=== PATIENT | female | born 1940 | race American Indian/Alaskan Native ===

== ENCOUNTER 2018-06-18 09:08 | Emergency (ER) | payer MEDICARE ==
[2018-06-18 10:03] VITALS: RESP 18; TEMP 99.1; BMI 28.3
--- NOTE | 2018-06-18 10:19 | ED PDOC ---
Arrival/HPI - General Historian: Patient - History of Present Illness Time/Duration: Prior to Arrival <Kayode Lynch - Last Filed: 06/18/18 18:24> <Ishan Torrez DO - Last Filed: 06/18/18 18:45> - General Chief Complaint: High Blood Pressure Time Seen by Provider: 06/18/18 09:31 - History of Present Illness Narrative History of Present Illness (Text): 06/18/18 10:14 78 yo F with Past medical history of hypertension, breast cancer s/p R lumpectomy presenting to the Emergency department with palpitations and high BP. Per patient, she began experiencing palpitations last night which concerned her. She measured her blood pressure at home, SBP was running in the 150s, even after taking her spironolactone at home. She states her BP usually runs in the 130s. Patient denies any chest pain or palpitations currently. No sob, cough, headaches, dizziness, abdominal pain, nausea/vomiting/ diarrhea/constipation. No other acute complaints at this time. Past medical history: hypertension, breast cancer (in remission) PSHx: hysterectomy--heavy menses; R partial mastectomy (lumpectomy) Allergies: NKDA Home Medications: as per chart FHx: hypertension, diabetes, cancer Social: former smoker--quit 30 years ago; social drinker; denies illicit drug use PMD: Dr. Caceres (Kayode Lynch) Past Medical History - Provider Review Nursing Documentation Reviewed: Yes - Travel History Have you recently traveled outside [place] w/in the past 3 mons?: No - Cardiac Hx Cardiac Disorders: Yes Hx Hypertension: Yes - Pulmonary Hx Respiratory Disorders: No - Neurological Hx Paralysis: No - HEENT Hx Cataracts: Yes - Renal Hx Renal Disorder: No - Endocrine/Metabolic Hx Endocrine Disorders: No - Hematological/Oncological Hx Blood Transfusions: Yes (25 YRS AGO) Hx Blood Transfusion Reaction: No Other/Comment: Breast CA - Integumentary Hx Dermatological Disorder: No - Musculoskeletal/Rheumatological Hx Musculoskeletal Disorders: Yes (JOINT PAINS SOMETIMES) - Gastrointestinal Hx Gastrointestinal Disorders: No - Genitourinary/Gynecological Hx Reproductive Disorders: Yes (HAD HYSTERECTOMY HEAVY MENSES) - Psychiatric Hx Emotional Abuse: No Hx Physical Abuse: No Hx Substance Use: No - Surgical History Other/Comment: right breast lumpectomy - Anesthesia Hx Anesthesia Reactions: No Hx Malignant Hyperthermia: No - Suicidal Assessment Feels Threatened In Home Enviroment: No <CrisKayode - Last Filed: 06/18/18 18:24> Family/Social History - Physician Review Nursing Documentation Reviewed: Yes Family/Social History: Diabetes, Hypertension, Neoplasm/Cancer Smoking Status: Former Smoker Hx Alcohol Use: Yes Frequency of alcohol use: Socially Hx Substance Use: No Hx Substance Use Treatment: No <Kayode Lynch - Last Filed: 06/18/18 18:24> Allergies/Home Meds <Kayode Lynch - Last Filed: 06/18/18 18:24> <Ishan Torrez DO - Last Filed: 06/18/18 18:45> Allergies/Adverse Reactions: Allergies No Known Allergies Allergy (Verified 06/18/18 09:55) Home Medications: Home Meds Medication Instructions Recorded Confirmed Spironolactone 1 tab PO QAM 04/01/15 11/09/16 Anastrozole [Arimidex] 1 mg PO QAM 10/27/15 11/09/16 Aspirin [Aspirin EC] 81 mg PO DAILY 10/27/15 11/09/16 Atorvastatin [Lipitor] 20 mg PO QAM 10/27/15 11/09/16 Ezetimibe [Zetia] 10 mg PO 11/09/16 Review of Systems - Physician Review All systems were reviewed & negative as marked: Yes - Review of Systems Constitutional: Normal Eyes: Normal ENT: Normal Respiratory: Normal Cardiovascular: Normal. absent: Chest Pain, Palpitations, Edema, Calf Pain, Syncope Gastrointestinal: Normal. absent: Abdominal Pain, Diarrhea, Nausea, Vomiting Genitourinary Female: Normal Musculoskeletal: Normal Skin: Normal Neurological: Normal Endocrine: Normal <CrisKayode - Last Filed: 06/18/18 18:24> Physical Exam Vital Signs Reviewed: Yes Temperature: Afebrile Blood Pressure: Hypertensive Pulse: Regular Respiratory Rate: Normal Appearance: Positive for: Well-Appearing, Non-Toxic, Comfortable Pain Distress: None Mental Status: Positive for: Alert and Oriented X 3 - Systems Exam Head: Present: Atraumatic, Normocephalic Pupils: Present: PERRL Extroacular Muscles: Present: EOMI Conjunctiva: Present: Normal Mouth: Present: Moist Mucous Membranes Neck: Present: Normal Range of Motion Respiratory/Chest: Present: Clear to Auscultation, Good Air Exchange. No: Respiratory Distress, Wheezes, Rales, Rhonchi Cardiovascular: Present: Regular Rate and Rhythm, Normal S1, S2. No: Murmurs, Rub, Gallop Abdomen: Present: Normal Bowel Sounds. No: Tenderness, Distention, Rebound, Guarding, Mass/Organomegaly Breast/Axillary: No: Symmetrical (R lumpectomy) Back: Present: Normal Inspection Upper Extremity: Present: Normal Inspection, Normal ROM, NORMAL PULSES, Capillary Refill < 2s Lower Extremity: Present: Normal Inspection, NORMAL PULSES, Normal ROM, Capillary Refill < 2 s. No: CALF TENDERNESS Neurological: Present: CN II-XII Intact, Speech Normal, Motor Func Grossly Intact, Normal Sensory Function, Memory Normal Skin: Present: Warm, Dry, Normal Color Psychiatric: Present: Alert, Oriented x 3, Normal Insight, Normal Concentration , Normal Affect, Normal Mood <Kayode Lynch - Last Filed: 06/18/18 18:24> Vital Signs Temp Pulse Resp BP Pulse Ox 06/18/18 11:50 50 L 18 140/76 99 06/18/18 09:55 99.1 F 62 18 181/79 H 100 Medical Decision Making - EKG Interpretation Interpreted by ED Physician: Yes Type: 12 lead EKG <Kayode Lynch - Last Filed: 06/18/18 18:24> <Ishan Torrez DO - Last Filed: 06/18/18 18:45> ED Course and Treatment: 06/18/18 10:23 Impression: uncontrolled htn Plan: -- CBC, CMP -- EKG -- Reassess and disposition (Kayode Lynch) 06/18/18 10:25 Impression: 78 year old female presents to the Emergency department for palpitations and high BP. Patient Seen with Resident: In agreement with resident note which contains more details about the patient. Patient seen and evaluated with resident. Came up with plan and treatment together. Plan: -- EKG -- Labs -- Reassess and disposition Progress Notes: 06/18/18 11:35 On re-evaluation, patient is sitting with no acute distress. I have discussed the results and plan with the patient, who expresses understanding. Patient in agreement with plan to be discharged home. Patient is stable for discharge. Patient was instructed to follow up with physician or return if symptoms worsen or new concerning symptoms arise. (Ishan Torrez DO) - Lab Interpretations Lab Results: 06/18/18 10:40 06/18/18 10:40 Lab Results 06/18/18 10:40: Sodium 139, Potassium 5.1 H, Chloride 104, Carbon Dioxide 27, Anion Gap 13, BUN 20, Creatinine 1.1, Est GFR ( Amer) 58, Est GFR (Non- Af Amer) 48, Random Glucose 119 H, Calcium 10.4, Magnesium 2.3 H, Total Bilirubin 0.9, AST 24, ALT 22, Alkaline Phosphatase 89, Lactate Dehydrogenase 253 L, Total Creatine Kinase 95, Troponin I < 0.01, Total Protein 7.9, Albumin 4.4, Globulin 3.5, Albumin/Globulin Ratio 1.2 06/18/18 10:40: WBC 6.8, RBC 4.71, Hgb 15.7, Hct 47.9, MCV 101.7, MCH 33.3, MCHC 32.8, RDW 13.8, Plt Count 213, MPV 10.5, Gran % 73.0 H, Lymph % (Auto) 21.4 L, [place] % (Auto) 5.3, Eos % (Auto) 0.0 L, Baso % (Auto) 0.3, Gran # 4.97, Lymph # (Auto) 1.5, [place] # (Auto) 0.4, Eos # (Auto) 0.0, Baso # (Auto) 0.02 - EKG Interpretation EKG Interpretation (Text): 06/18/18 10:36 Sinus steve 56 bpm DE 158 T wave abnormality, consider lateral ischemia (Kayode Lynch) <Kayode Lynch - Last Filed: 06/18/18 18:24> - PA / PROOF PLATE MAKER / Resident Statement CARLTON has reviewed & agrees with the documentation as recorded. CARLTON has examined the patient and agrees with the treatment plan. - Scribe Statement The provider has reviewed the documentation as recorded by the Scribe <Ishan Torrez DO - Last Filed: 06/18/18 18:45> - Scribe Statement Ailyn Prince All medical record entries made by the Scribe were at my direction and personally dictated by me. I have reviewed the chart and agree that the record accurately reflects my personal performance of the history, physical exam, medical decision making, and the department course for this patient. I have also personally directed, reviewed, and agree with the discharge instructions and disposition. (Ishan Torrez DO) Disposition/Present on Arrival - Present on Arrival Any Indicators Present on Arrival: No History of DVT/PE: No History of Uncontrolled Diabetes: No Urinary Catheter: No History of Decub. Ulcer: No History Surgical Site Infection Following: None - Disposition Have Diagnosis and Disposition been Completed?: Yes Disposition Time: 11:50 <Kayode Lynch - Last Filed: 06/18/18 18:24> <Ishan Torrez DO - Last Filed: 06/18/18 18:45> - Disposition Diagnosis: Hypertension Disposition: HOME/ ROUTINE Condition: GOOD Discharge Instructions (ExitCare): High Blood Pressure (DC) Additional Instructions: ANA CRESPO, thank you for letting us take care of you today. Your provider was Ishan Torrez DO and you were treated for HIGH BLOOD PRESSURE. The emergency medical care you received today was directed at your acute symptoms. If you were prescribed any medication, please fill it and take as directed. It may take several days for your symptoms to resolve. Return to the Emergency Department if your symptoms worsen, do not improve, or if you have any other problems. Please contact your doctor or call one of the physicians/clinics you have been referred to that are listed on the Patient Visit Information form that is included in your discharge packet. Bring any paperwork you were given at discharge with you along with any medications you are taking to your follow up visit. Our treatment cannot replace ongoing medical care by a primary care provider outside of the emergency department. Thank you for allowing the [facility] team to be part of your care today. Follow up with your primary care doctor this week for re-evaluation and further management. Referrals: Oleg Caceres MD [Family Provider] - Follow up with primary Forms: [employer] (Danish)
[2018-06-18 11:12] LABS: BASO # 0.02 K/mm3 (0.0-2.0); BASO % 0.3 % (0.0-3.0); GRAN # 4.97 (1.4-6.5); HEMOGLOBIN 15.7 g/dL (12.0-16.0); LYMPH # 1.5 (1.2-3.4); LYMPH % 21.4 % (22.0-35.0); MEAN CELL VOLUME 101.7 fl (80.0-105.0); MEAN CORPUSCULAR HEMOGLOBIN 33.3 pg (25.0-35.0); MEAN CORPUSCULAR HGB CONC 32.8 g/dl (31.0-37.0); MEAN PLATELET VOLUME 10.5 fl (7.0-11.0); MONO # 0.4 (0.1-0.6); MONO % 5.3 % (1.0-6.0); RBC 4.71 10^6/uL (3.5-6.1); RED CELL DISTRIBUTION WIDTH 13.8 % (11.5-14.5); WHITE BLOOD COUNT 6.8 10^3/ul (4.5-11.0)
[2018-06-18 11:20] LABS: ALB/GLOB RATIO 1.2 (1.1-1.8); ALBUMIN 4.4 g/dL (3.0-4.8); ALT/SGPT 22 U/L (7-56); AST/SGOT 24 U/L (14-36); BLOOD UREA NITROGEN 20 mg/dL (7-21); CALCIUM 10.4 mg/dL (8.4-10.5); GFR NON-AFRICAN AMERICAN 48
[2018-06-18 11:32] LABS: TROPONIN I < 0.01 ng/mL
[2018-06-18 11:51] VITALS: BP 140/76; PULSE 50; O2SAT 99
--- NOTE | 2018-06-18 13:00 | CARD ---
APPROVED REPORT Date of service: 06/18/2018 EKG Measurement Heart [id number] <Conclusion> Sinus bradycardia RVCD T wave abnormality, consider lateral ischemia
== END 2018-06-18 12:07 | disposition home or self-care (01) ==
LOC: ED 09:08
DX: I10 Essential (primary) hypertension (principal); Z87.891 Personal history of nicotine dependence; Z83.3 Family history of diabetes mellitus; Z82.49 Family history of ischemic heart disease and other diseases of the circulatory system; Z85.3 Personal history of malignant neoplasm of breast

== ENCOUNTER 2018-12-15 20:09 | Inpatient (IN) | payer MEDICARE ==
[2018-12-15 20:15] VITALS: BMI 28.8
[2018-12-15] MEDS ORDERED: Insulin Regular 1 UNITS/0.01 ML ML IVP STA (21:00)
[2018-12-15] MEDS ORDERED: Sodium Chloride 0.9% 1,000 ML IV STA ×3 (21:00→23:09)
[2018-12-15 21:18] LABS: VENOUS BLOOD GAS BASE EXCESS -1.3 mmol/L (0.0-2.0); VENOUS BLOOD GAS PO2 27 mm/Hg (30-55); VENOUS BLOOD PH 7.34 (7.32-7.43)
[2018-12-15 21:24] LABS: HEMOGLOBIN 14.1 g/dL (12.0-16.0); MEAN CELL VOLUME 108.9 fl (80.0-105.0); MEAN CORPUSCULAR HEMOGLOBIN 32.9 pg (25.0-35.0); MEAN CORPUSCULAR HGB CONC 30.2 g/dl (31.0-37.0); MEAN PLATELET VOLUME 11.5 fl (7.0-11.0); RBC 4.29 10^6/uL (3.5-6.1); RED CELL DISTRIBUTION WIDTH 13.7 % (11.5-14.5); WHITE BLOOD COUNT 7.2 10^3/uL (4.5-11.0)
[2018-12-15] MEDS ORDERED: Potassium Chloride 20 mEq 100 ML IV ONE (21:32)
[2018-12-15 21:41] LABS: TROPONIN I 0.01 ng/mL
[2018-12-15 22:18] LABS: ALB/GLOB RATIO 1.3 (1.1-1.8); ALBUMIN 4.2 g/dL (3.0-4.8); CALCIUM 10.7 mg/dL (8.4-10.5)
[2018-12-15] MEDS ORDERED: Insulin Regular 1 UNITS/0.01 ML ML SC STA (22:25)
--- NOTE | 2018-12-15 22:26 | ED PDOC ---
Arrival/HPI - General Chief Complaint: High Blood Sugar Time Seen by Provider: 12/15/18 20:29 Historian: Patient - History of Present Illness Narrative History of Present Illness (Text): 12/15/18 20:50 78 year old female whose past medical history includes breast cancer, Hypertension, new onset of diabetes, presents to the emergency department for evaluation of persistent elevation of her blood sugar, dizziness, and excessive thirst. Patient states she was diagnosis yesterday by her doctor who placed her on metformin. Patient states she does not feel any better. Patient denies any fevers, chills, shortness of breath, chest pain, abdominal pain, urinary symptoms, back pain, neck pain, headache, or any other complaints PMD: Dr. Caceres Symptom Onset: Gradual Symptom Course: Unchanged Activities at Onset: Light Context: Home Past Medical History - Provider Review Nursing Documentation Reviewed: Yes - Infectious Disease Hx of Infectious Diseases: None - Cardiac Hx Cardiac Disorders: Yes Hx Hypertension: Yes - Pulmonary Hx Respiratory Disorders: No - Neurological Hx Paralysis: No - HEENT Hx Cataracts: Yes - Renal Hx Renal Disorder: No - Endocrine/Metabolic Hx Endocrine Disorders: No - Hematological/Oncological Hx Blood Transfusions: Yes (25 YRS AGO) Hx Blood Transfusion Reaction: No Hx Cancer: Yes (breast) Other/Comment: Breast CA - Integumentary Hx Dermatological Disorder: No - Musculoskeletal/Rheumatological Hx Musculoskeletal Disorders: Yes (JOINT PAINS SOMETIMES) - Gastrointestinal Hx Gastrointestinal Disorders: No - Genitourinary/Gynecological Hx Reproductive Disorders: Yes (HAD HYSTERECTOMY HEAVY MENSES) - Psychiatric Hx Emotional Abuse: No Hx Physical Abuse: No Hx Substance Use: No - Surgical History Hx Hysterectomy: Yes Other/Comment: RIGHT BREAST MASTECTOMY/PARTIAL WITH SENTINEL NODE - Anesthesia Hx Anesthesia Reactions: No Hx Malignant Hyperthermia: No - Suicidal Assessment Feels Threatened In Home Enviroment: No Family/Social History - Physician Review Nursing Documentation Reviewed: Yes Family/Social History: No Known Family HX Smoking Status: Former Smoker Hx Alcohol Use: No Hx Substance Use: No Hx Substance Use Treatment: No Allergies/Home Meds Allergies/Adverse Reactions: Allergies No Known Allergies Allergy (Verified 12/15/18 20:15) Home Medications: Home Meds Medication Instructions Recorded Confirmed Spironolactone 1 tab PO QAM 04/01/15 11/09/16 Anastrozole [Arimidex] 1 mg PO QAM 10/27/15 11/09/16 Aspirin [Aspirin EC] 81 mg PO DAILY 10/27/15 11/09/16 Atorvastatin [Lipitor] 20 mg PO QAM 10/27/15 11/09/16 Ezetimibe [Zetia] 10 mg PO 11/09/16 Review of Systems - Physician Review All systems were reviewed & negative as marked: Yes - Review of Systems Constitutional: absent: Fevers, Other (chills) Respiratory: absent: SOB Cardiovascular: absent: Chest Pain Gastrointestinal: absent: Abdominal Pain, Diarrhea, Nausea, Vomiting Genitourinary Female: absent: Dysuria, Frequency, Hematuria Musculoskeletal: absent: Back Pain, Neck Pain Neurological: Dizziness. absent: Headache Endocrine: Polydipsia Physical Exam Vital Signs Reviewed: Yes Vital Signs Temp Pulse Resp BP Pulse Ox 12/15/18 22:10 72 16 130/74 95 12/15/18 20:23 98.0 F 74 20 155/83 H 95 Temperature: Afebrile Blood Pressure: Hypertensive Pulse: Regular Respiratory Rate: Normal Appearance: Positive for: Well-Appearing, Non-Toxic, Comfortable Pain Distress: None Mental Status: Positive for: Alert and Oriented X 3 Finger Stick Blood Glucose: 500 - Systems Exam Head: Present: Atraumatic, Normocephalic Pupils: Present: PERRL Extroacular Muscles: Present: EOMI Conjunctiva: Present: Normal Mouth: Present: Dry Neck: Present: Normal Range of Motion Respiratory/Chest: Present: Clear to Auscultation, Good Air Exchange. No: Respiratory Distress, Accessory Muscle Use Cardiovascular: Present: Regular Rate and Rhythm, Normal S1, S2. No: Murmurs Abdomen: No: Tenderness, Distention, Peritoneal Signs Back: Present: Normal Inspection Upper Extremity: Present: Normal Inspection. No: Cyanosis, Edema Lower Extremity: Present: Normal Inspection. No: Edema Neurological: Present: GCS=15, CN II-XII Intact, Speech Normal Skin: Present: Warm, Dry, Normal Color. No: Rashes Psychiatric: Present: Alert, Oriented x 3, Normal Insight, Normal Concentration Medical Decision Making ED Course and Treatment: 12/15/18 20:50 Impression: 78 year old female presents complaining of persistent elevation of her blood sugar, dizziness, and excessive thirst. Patient recently diagnosed with diabetes yesterday. Plan: -- EKG -- Labs -- CXR -- HumuLin R, IV FLuids -- UA -- Reassess and disposition Prior Visits: Notes and results from previous visits were reviewed. Progress Notes: EKG shows NSR at 63 BPM with nonspecific t-wave changes. Interpreted by me 12/15/18 22:46 Case discussed with medical radiation tech and Dr. So who is aware and agrees with the plan. Accepts patient into hospitalist service. - Lab Interpretations Lab Results: pO2 27 mm/Hg (30-55) L 12/15/18 21:08 VBG pH 7.34 (7.32-7.43) 12/15/18 21:08 VBG pCO2 46.0 (40-60) 12/15/18 21:08 VBG HCO3 24.8 mmol/l (21-28) 12/15/18 21:08 VBG O2 Sat (Calc) 48.9 % (40-65) 12/15/18 21:08 VBG Base Excess -1.3 mmol/L (0.0-2.0) L 12/15/18 21:08 Troponin I 0.01 ng/mL 12/15/18 20:55 Total Bilirubin 0.6 mg/dL (0.2-1.3) 12/15/18 20:55 AST 28 U/L (14-36) 12/15/18 20:55 ALT 37 U/L (7-56) 12/15/18 20:55 Alkaline Phosphatase 103 U/L (38-126) 12/15/18 20:55 Total Protein 7.3 g/dL (5.8-8.3) 12/15/18 20:55 Albumin 4.2 g/dL (3.0-4.8) 12/15/18 20:55 Globulin 3.1 gm/dL 12/15/18 20:55 Albumin/Globulin Ratio 1.3 (1.1-1.8) 12/15/18 20:55 I have reviewed the lab results: Yes - RAD Interpretation Radiology Orders: 12/15/18 20:59 CHEST PORTABLE [RAD] Stat Coagulating Bath Operator: ED Physician - EKG Interpretation Interpreted by ED Physician: Yes Type: 12 lead EKG - Medication Orders Current Medication Orders: Sodium Chloride (Sodium Chloride 0.9%) 1,000 mls @ 200 mls/hr IV .Q5H CLYDE Sodium Chloride (Sodium Chloride 0.9%) 1,000 mls @ 999 mls/hr IV .Q1H1M STA Stop: 12/15/18 23:19 Discontinued Medications Sodium Chloride (Sodium Chloride 0.9%) 1,000 mls @ 999 mls/hr IV .Q1H1M STA Stop: 12/15/18 22:00 Last Admin: 12/15/18 20:55 Dose: 999 mls/hr eMAR Start Stop Document 12/15/18 20:55 KV (Rec: 12/15/18 21:11 KV [id number]) Intravenous Solution Start Date 12/15/18 Start Time 20:55 Insulin Human Regular (Humulin R) 10 units IVP STAT STA Stop: 12/15/18 21:01 Last Admin: 12/15/18 21:13 Dose: 10 unit MAR Blood Glucose Document 12/15/18 21:13 KV (Rec: 12/15/18 21:13 KV [id number]) Blood Glucose Finger Stick Blood Glucose (70-120) 500 IVP Administration Document 12/15/18 21:13 KV (Rec: 12/15/18 21:13 KV [id number]) Charges for Administration # of IVP Administrations 1 - Scribe Statement The provider has reviewed the documentation as recorded by the Scribe Jovan Jay All medical record entries made by the Scribe were at my direction and personally dictated by me. I have reviewed the chart and agree that the record accurately reflects my personal performance of the history, physical exam, medical decision making, and the department course for this patient. I have also personally directed, reviewed, and agree with the discharge instructions and disposition. Disposition/Present on Arrival - Present on Arrival Any Indicators Present on Arrival: No History of DVT/PE: No History of Uncontrolled Diabetes: No Urinary Catheter: No History of Decub. Ulcer: No History Surgical Site Infection Following: None - Disposition Have Diagnosis and Disposition been Completed?: Yes Diagnosis: Uncontrolled diabetes mellitus Disposition: HOSPITALIZED Disposition Time: 22:45 Patient Plan: Admission Condition: STABLE
[2018-12-15 22:46] LABS: URINE BILIRUBIN NEGATIVE (NEGATIVE); URINE BLOOD TRACE-LYSED (NEGATIVE); URINE GLUCOSE (UA) >=1000 mg/dL (NEGATIVE); URINE LEUKOCYTE ESTERASE NEGATIVE Leu/uL (NEGATIVE); URINE PROTEIN NEGATIVE mg/dL (<30 mg/dL); URINE UROBILINOGEN 0.2 E.U./dL (<1 E.U./dL)
[2018-12-15] MEDS ORDERED: Dextrose 50% SYRINGE Inj (50 ml) IV PRN (22:53)
[2018-12-15 22:54] LABS: URINE APPEARANCE CLEAR (CLEAR); URINE COLOR STRAW (YELLOW)
[2018-12-15 23:04] LABS: CK-MB 3.1 ng/mL (0.0-3.6)
[2018-12-15 23:05] LABS: URINE WBC 0 - 2 /hpf (0-6)
--- NOTE | 2018-12-16 00:05 | CP.PCM.HP ---
<Fernando Ballard - Last Filed: 12/16/18 00:05> History of Present Illness - History of Present Illness History of Present Illness: Fernando Ballard DO, PGY-1 Hospitalist Admission History and Physical for Dr. So CC: hyperglycemia, polyuria, polydypsia HPI: Capri is a pleasant 78 year old female with PMH of newly diagnosed DM2, HTN, breast CA (s/p R partial mastectomy, on arimidex), and HLD who presents to ED with her family for concerns of an elevated blood sugar reading. She states that she took her blood sugar this evening and it was in the 500s, prompting her to present to ED. She states she saw her PMD yesterday who diagnosed her with DM2 and placed her on metformin. She states that since yesterday, she has also noticed increasing polyuria, polydypsia, and dizziness. In ED, her blood sugar was found to be > 1000. She otherwise offers no additional complaints and denies fever/chills, recent sick contacts, CP, SOB, abd pain/nausea/vomiting, peripheral numbness/tingling, or dysuria. 12-point ROS was otherwise negative except as specified above. PMD: [place] Past Medical History: newly diagnosed DM2, HTN, breast CA (s/p R partial mastectomy, on arimidex), and HLD Past Surgical History: R partial mastectomy, hysterectomy Allergies: NKA Home medications: Aldactone 50 mg daily, Zetia 10 mg daily, Lipitor 20 mg daily, ASA 81 mg daily, Arimidex 1 mg daily Family History: mother and father both had HTN, DM2 Social History: admits to prior smoking but quit 30 years ago, reports social EtOH use, denies illicit drug use Present on Admission - Present on Admission Any Indicators Present on Admission: Yes History of DVT/PE: No History of Uncontrolled Diabetes: Yes Urinary Catheter: No Decubitus Ulcer Present: No Past Patient History - Infectious Disease Hx of Infectious Diseases: None - Past Medical History & Family History Past Medical History?: Yes - Past Social History Smoking Status: Former Smoker - CARDIAC Hx Cardiac Disorders: Yes Hx Hypercholesterolemia: Yes Hx Hypertension: Yes Other/Comment: [place] 2000 - PULMONARY Hx Respiratory Disorders: No - NEUROLOGICAL Hx Neurological Disorder: No - HEENT Hx Cataracts: Yes - RENAL Hx Chronic Kidney Disease: No - ENDOCRINE/METABOLIC Hx Endocrine Disorders: No Hx Diabetes Mellitus Type 2: Yes - HEMATOLOGICAL/ONCOLOGICAL Hx Anemia: Yes Hx Cancer: Yes (rt breast) Other/Comment: Breast CA radiation on chemo pills - INTEGUMENTARY Hx Dermatological Problems: No - MUSCULOSKELETAL/RHEUMATOLOGICAL Hx Musculoskeletal Disorders: Yes (JOINT PAINS SOMETIMES) Hx Falls: No - GASTROINTESTINAL Hx Gastrointestinal Disorders: No - GENITOURINARY/GYNECOLOGICAL Hx Reproductive Disorders: Yes (HAD HYSTERECTOMY HEAVY MENSES) - PSYCHIATRIC Hx Emotional Abuse: No Hx Physical Abuse: No Hx Substance Use: No - SURGICAL HISTORY Hx Coronary Stent: Yes Hx Hysterectomy: Yes Other/Comment: RIGHT BREAST LUMPECTOMY/PARTIAL WITH SENTINEL NODE - ANESTHESIA Hx Anesthesia Reactions: No Hx Malignant Hyperthermia: No Meds Allergies/Adverse Reactions: Allergies Allergy/AdvReac Type Severity Reaction Status Date / Time No Known Allergies Allergy Verified 12/15/18 20:15 Physical Exam - Constitutional Appears: Non-toxic, No Acute Distress - Head Exam Head Exam: ATRAUMATIC, NORMOCEPHALIC - Eye Exam Eye Exam: EOMI, PERRL - ENT Exam ENT Exam: Mucous Membranes Dry - Neck Exam Neck exam: Positive for: Full Rom, Normal Inspection - Respiratory Exam Respiratory Exam: Clear to Auscultation Bilateral, NORMAL BREATHING PATTERN. absent: Accessory Muscle Use, Rales, Rhonchi, Wheezes, Respiratory Distress - Cardiovascular Exam Cardiovascular Exam: REGULAR RHYTHM, RRR, +S1, +S2. absent: Diastolic murmur, Gallop, Rubs, Systolic Murmur - GI/Abdominal Exam GI & Abdominal Exam: Normal Bowel Sounds, Soft. absent: Guarding, Rebound, Tenderness - Extremities Exam Extremities exam: Positive for: full ROM, pedal pulses present. Negative for: pedal edema - Back Exam Back exam: NORMAL INSPECTION - Neurological Exam Neurological exam: Alert, Oriented x3 - Psychiatric Exam Psychiatric exam: Normal Affect, Normal Mood - Skin Skin Exam: Dry, Intact, Warm Results - Vital Signs Recent Vital Signs: Last Vital Signs Temp 98.0 F 12/15/18 20:23 Pulse 72 12/15/18 22:10 Resp 18 12/15/18 23:38 BP 130/74 12/15/18 22:10 Pulse Ox 95 12/15/18 22:10 - Labs Result Diagrams: 12/15/18 20:55 12/15/18 20:55 Labs: Laboratory Results - last 24 hr 12/15/18 12/15/18 12/15/18 20:21 20:55 20:55 WBC 7.2 RBC 4.29 Hgb 14.1 Hct 46.7 MCV 108.9 H D MCH 32.9 MCHC 30.2 L RDW 13.7 Plt Count 189 MPV 11.5 H pO2 VBG pH VBG pCO2 VBG HCO3 VBG O2 Sat (Calc) VBG Base Excess Sodium 130 L Potassium 5.1 H Chloride 95 L Carbon Dioxide 21 Anion Gap 19 BUN 49 H Creatinine 1.5 H Est GFR ( Amer) 41 Est GFR (Non-Af Amer) 33 POC Glucose (mg/dL) > 500 H* Random Glucose 1057 H* D Calcium 10.7 H Phosphorus Magnesium Total Bilirubin 0.6 AST 28 ALT 37 Alkaline Phosphatase 103 Lactate Dehydrogenase 267 L Total Creatine Kinase 462 H CK-MB (CK-2) 3.1 CK-MB (CK-2) % Cancelled Troponin I 0.01 Total Protein 7.3 Albumin 4.2 Globulin 3.1 Albumin/Globulin Ratio 1.3 Urine Color Urine Appearance Urine pH Ur Specific Casco Urine Protein Urine Glucose (UA) Urine Ketones Urine Blood Urine Nitrate Urine Bilirubin Urine Urobilinogen Ur Leukocyte Esterase Urine RBC Urine WBC Ur Epithelial Cells 12/15/18 12/15/18 12/15/18 21:08 22:40 22:55 WBC RBC Hgb Hct MCV MCH MCHC RDW Plt Count MPV pO2 27 L VBG pH 7.34 VBG pCO2 46.0 VBG HCO3 24.8 VBG O2 Sat (Calc) 48.9 VBG Base Excess -1.3 L Sodium Potassium Chloride Carbon Dioxide Anion Gap BUN Creatinine Est GFR ( Amer) Est GFR (Non-Af Amer) POC Glucose (mg/dL) Random Glucose Calcium Phosphorus 3.7 Magnesium 2.4 H Total Bilirubin AST ALT Alkaline Phosphatase Lactate Dehydrogenase Total Creatine Kinase CK-MB (CK-2) CK-MB (CK-2) % Troponin I Total Protein Albumin Globulin Albumin/Globulin Ratio Urine Color Straw Urine Appearance Clear Urine pH 6.0 Ur Specific [place] 1.010 Urine Protein Negative Urine Glucose (UA) >=1000 Urine Ketones Trace H Urine Blood Trace-lysed H Urine Nitrate Negative Urine Bilirubin Negative Urine Urobilinogen 0.2 Ur Leukocyte Esterase Negative Urine RBC 1 - 3 H Urine WBC 0 - 2 Ur Epithelial Cells 1 - 3 Assessment & Plan - Assessment and Plan (Free Text) Assessment: 78 yo F with PMH of newly diagnosed DM2, HTN, breast CA (s/p R partial mastectomy, on arimidex), and HLD admitted for management of symptomatic hyperglycemic, hyperosmolar syndrome. Plan: HHS 2/2 uncontrolled, newly diagnosed DM2 2 L NS boluses received in ED, will give additional 1 L bolus Continue IVF resuscitation at 200 cc/hr after 3rd bolus 15 u regular insulin SC and 10 u IVP given in ED Continue with ISS - high coverage Fingerstick glucose q4h tonight, likely switch to ACHS tomorrow after stabilization of blood sugar F/u A1c, lipid panel, TSH, electrolytes, folate, B12 in AM Endocrinology consult placed, all recs appreciated CYNDI Most likely 2/2 pre-renal azotemia from dehydration/hyperglycemia Continue IVF resuscitation Continue to monitor renal function parameters If not improving with IVF, may be CYNDI on CKD and may need nephrology consult Hyperkalemia Most likely 2/2 acute renal dysfunction from CYNDI Continue to monitor with insulin therapy Elevated CPK May be concerning for early onset rhabdo given patient reports muscle cramps Already treating with IVF resuscitation Continue to monitor, may need dialysis/nephro consult if renal function continues to worsen HTN Was seen in ED for uncontrolled HTN in 05/2018 Prior records indicate no BP meds, but need to call pharmacy in AM to confirm Has been normotensive since admission Continue to monitor, restart prior meds as needed HLD Continue home lipitor, zetia Had normal stress test in 10/2016 F/u lipid panel results DVT/GI PPX: SCD/GI ppx not indicated Full Code Diabetic diet Monitor on med/surg Patient seen, examined with, and plan discussed with my attending Dr. Judah Ballard, D.O. IM Resident PGY-1 <Darlene So - Last Filed: 12/16/18 19:51> Results - Vital Signs Recent Vital Signs: Last Vital Signs Temp 98.3 F 12/16/18 17:15 Pulse 62 12/16/18 17:15 Resp 18 12/16/18 17:15 BP 166/84 H 12/16/18 17:15 Pulse Ox 98 12/16/18 17:15 - Labs Result Diagrams: 12/16/18 05:00 12/16/18 05:00 Labs: Laboratory Results - last 24 hr 12/15/18 12/15/18 12/15/18 20:21 20:55 20:55 WBC 7.2 RBC 4.29 Hgb 14.1 Hct 46.7 MCV 108.9 H D MCH 32.9 MCHC 30.2 L RDW 13.7 Plt Count 189 MPV 11.5 H Neut % (Auto) Lymph % (Auto) Murray % (Auto) Eos % (Auto) Baso % (Auto) Lymph # (Auto) Murray # (Auto) Eos # (Auto) Baso # (Auto) Absolute Neuts (auto) pO2 VBG pH VBG pCO2 VBG HCO3 VBG O2 Sat (Calc) VBG Base Excess Sodium 130 L Potassium 5.1 H Chloride 95 L Carbon Dioxide 21 Anion Gap 19 BUN 49 H Creatinine 1.5 H Est GFR ( Amer) 41 Est GFR (Non-Af Amer) 33 POC Glucose (mg/dL) > 500 H* Random Glucose 1057 H* D Calcium 10.7 H Phosphorus Magnesium Total Bilirubin 0.6 AST 28 ALT 37 Alkaline Phosphatase 103 Lactate Dehydrogenase 267 L Total Creatine Kinase 462 H CK-MB (CK-2) 3.1 CK-MB (CK-2) % Cancelled Troponin I 0.01 Total Protein 7.3 Albumin 4.2 Globulin 3.1 Albumin/Globulin Ratio 1.3 Triglycerides Cholesterol LDL Cholesterol Direct HDL Cholesterol Vitamin B12 Folate TSH 3rd Generation Urine Color Urine Appearance Urine pH Ur Specific [place] Urine Protein Urine Glucose (UA) Urine Ketones Urine Blood Urine Nitrate Urine Bilirubin Urine Urobilinogen Ur Leukocyte Esterase Urine RBC Urine WBC Ur Epithelial Cells 12/15/18 12/15/18 12/15/18 21:08 22:25 22:40 WBC RBC Hgb Hct MCV MCH MCHC RDW Plt Count MPV Neut % (Auto) Lymph % (Auto) Murray % (Auto) Eos % (Auto) Baso % (Auto) Lymph # (Auto) Murray # (Auto) Eos # (Auto) Baso # (Auto) Absolute Neuts (auto) pO2 27 L VBG pH 7.34 VBG pCO2 46.0 VBG HCO3 24.8 VBG O2 Sat (Calc) 48.9 VBG Base Excess -1.3 L Sodium Potassium Chloride Carbon Dioxide Anion Gap BUN Creatinine Est GFR ( Amer) Est GFR (Non-Af Amer) POC Glucose (mg/dL) > 500 H* Random Glucose Calcium Phosphorus Magnesium Total Bilirubin AST ALT Alkaline Phosphatase Lactate Dehydrogenase Total Creatine Kinase CK-MB (CK-2) CK-MB (CK-2) % Troponin I Total Protein Albumin Globulin Albumin/Globulin Ratio Triglycerides Cholesterol LDL Cholesterol Direct HDL Cholesterol Vitamin B12 Folate TSH 3rd Generation Urine Color Straw Urine Appearance Clear Urine pH 6.0 Ur Specific [place] 1.010 Urine Protein Negative Urine Glucose (UA) >=1000 Urine Ketones Trace H Urine Blood Trace-lysed H Urine Nitrate Negative Urine Bilirubin Negative Urine Urobilinogen 0.2 Ur Leukocyte Esterase Negative Urine RBC 1 - 3 H Urine WBC 0 - 2 Ur Epithelial Cells 1 - 3 12/15/18 12/15/18 12/16/18 22:55 22:55 00:06 WBC RBC Hgb Hct MCV MCH MCHC RDW Plt Count MPV Neut % (Auto) Lymph % (Auto) Murray % (Auto) Eos % (Auto) Baso % (Auto) Lymph # (Auto) Murray # (Auto) Eos # (Auto) Baso # (Auto) Absolute Neuts (auto) pO2 VBG pH VBG pCO2 VBG HCO3 VBG O2 Sat (Calc) VBG Base Excess Sodium Potassium Chloride Carbon Dioxide Anion Gap BUN Creatinine Est GFR ( Amer) Est GFR (Non-Af Amer) POC Glucose (mg/dL) > 500 H* Random Glucose Calcium Phosphorus 3.7 Magnesium 2.4 H Total Bilirubin AST ALT Alkaline Phosphatase Lactate Dehydrogenase Total Creatine Kinase CK-MB (CK-2) CK-MB (CK-2) % Troponin I Total Protein Albumin Globulin Albumin/Globulin Ratio Triglycerides Cholesterol LDL Cholesterol Direct HDL Cholesterol Vitamin B12 709 Folate 10.8 TSH 3rd Generation Urine Color Urine Appearance Urine pH Ur Specific [place] Urine Protein Urine Glucose (UA) Urine Ketones Urine Blood Urine Nitrate Urine Bilirubin Urine Urobilinogen Ur Leukocyte Esterase Urine RBC Urine WBC Ur Epithelial Cells 12/16/18 12/16/18 12/16/18 05:00 05:00 05:00 WBC 8.6 RBC 4.18 Hgb 13.7 Hct 41.9 MCV 100.2 D MCH 32.8 MCHC 32.7 RDW 12.8 Plt Count 171 MPV 11.0 Neut % (Auto) 74.1 H Lymph % (Auto) 18.3 L Murray % (Auto) 6.7 H Eos % (Auto) 0.7 L Baso % (Auto) 0.2 Lymph # (Auto) 1.6 Murray # (Auto) 0.6 Eos # (Auto) 0.1 Baso # (Auto) 0.02 Absolute Neuts (auto) 6.40 pO2 VBG pH VBG pCO2 VBG HCO3 VBG O2 Sat (Calc) VBG Base Excess Sodium 143 Potassium 4.3 Chloride 112 H Carbon Dioxide 26 Anion Gap 10 BUN 30 H Creatinine 1.0 Est GFR ( Amer) > 60 Est GFR (Non-Af Amer) 53 POC Glucose (mg/dL) Random Glucose 265 H Calcium 9.8 Phosphorus 1.8 L Magnesium 2.1 Total Bilirubin 0.4 AST 32 ALT 27 Alkaline Phosphatase 78 Lactate Dehydrogenase Total Creatine Kinase CK-MB (CK-2) CK-MB (CK-2) % Troponin I Total Protein 7.2 Albumin 3.9 Globulin 3.3 Albumin/Globulin Ratio 1.2 Triglycerides 92 Cholesterol 135 LDL Cholesterol Direct 69 HDL Cholesterol 41 Vitamin B12 Folate TSH 3rd Generation 3.60 Urine Color Urine Appearance Urine pH Ur Specific [place] Urine Protein Urine Glucose (UA) Urine Ketones Urine Blood Urine Nitrate Urine Bilirubin Urine Urobilinogen Ur Leukocyte Esterase Urine RBC Urine WBC Ur Epithelial Cells 12/16/18 12/16/18 12/16/18 07:20 11:33 16:20 WBC RBC Hgb Hct MCV MCH MCHC RDW Plt Count MPV Neut % (Auto) Lymph % (Auto) Murray % (Auto) Eos % (Auto) Baso % (Auto) Lymph # (Auto) Murray # (Auto) Eos # (Auto) Baso # (Auto) Absolute Neuts (auto) pO2 VBG pH VBG pCO2 VBG HCO3 VBG O2 Sat (Calc) VBG Base Excess Sodium Potassium Chloride Carbon Dioxide Anion Gap BUN Creatinine Est GFR ( Amer) Est GFR (Non-Af Amer) POC Glucose (mg/dL) 215 H 296 H 330 H Random Glucose Calcium Phosphorus Magnesium Total Bilirubin AST ALT Alkaline Phosphatase Lactate Dehydrogenase Total Creatine Kinase CK-MB (CK-2) CK-MB (CK-2) % Troponin I Total Protein Albumin Globulin Albumin/Globulin Ratio Triglycerides Cholesterol LDL Cholesterol Direct HDL Cholesterol Vitamin B12 Folate TSH 3rd Generation Urine Color Urine Appearance Urine pH Ur Specific [place] Urine Protein Urine Glucose (UA) Urine Ketones Urine Blood Urine Nitrate Urine Bilirubin Urine Urobilinogen Ur Leukocyte Esterase Urine RBC Urine WBC Ur Epithelial Cells Attending/Attestation - Attestation I have personally seen and examined this patient.: Yes I have fully participated in the care of the patient.: Yes I have reviewed all pertinent clinical information: Yes Notes (Text): 12/16/18 19:51 Seen and examined. discussed with resident. A&P as above.
[2018-12-16] MEDS: Sodium Chloride 0.9% 1,000 ML IV SCH ×4 (01:22→09:03)
[2018-12-16 07:02] LABS: BASO # 0.02 K/mm3 (0.0-2.0); BASO % 0.2 % (0.0-3.0); EOS # 0.1 (0.0-0.7); EOS % 0.7 % (1.5-5.0); HEMOGLOBIN 13.7 g/dL (12.0-16.0); LYMPH # 1.6 (1.2-3.4); LYMPH % 18.3 % (22.0-35.0); MEAN CELL VOLUME 100.2 fl (80.0-105.0); MEAN CORPUSCULAR HEMOGLOBIN 32.8 pg (25.0-35.0); MEAN CORPUSCULAR HGB CONC 32.7 g/dl (31.0-37.0); MONO # 0.6 (0.1-0.6); MONO % 6.7 % (1.0-6.0); RBC 4.18 10^6/uL (3.5-6.1); RED CELL DISTRIBUTION WIDTH 12.8 % (11.5-14.5); WHITE BLOOD COUNT 8.6 10^3/uL (4.5-11.0)
[2018-12-16 07:18] LABS: ALB/GLOB RATIO 1.2 (1.1-1.8); ALBUMIN 3.9 g/dL (3.0-4.8); ALT/SGPT 27 U/L (7-56); AST/SGOT 32 U/L (14-36); BLOOD UREA NITROGEN 30 mg/dL (7-21); CALCIUM 9.8 mg/dL (8.4-10.5); GFR NON-AFRICAN AMERICAN 53; HDL CHOLESTEROL 41 mg/dL (29-60); LDL CHOLESTEROL 69 mg/dL (0-129)
[2018-12-16] MEDS ORDERED: Insulin Reg-HIGH-Coverage SC SCH (07:30)
[2018-12-16] MEDS: Insulin Reg-LOW-Coverage SC SCH ×4 (09:02→21:29)
--- NOTE | 2018-12-16 09:39 | CON ---
DATE: 12/15/2018 ROOM#: 370. ENDOCRINOLOGY CONSULTATION HISTORY OF PRESENT ILLNESS: This is a 78-year-old female with recent diagnosis of new-onset uncontrolled type 2 diabetes and placed on metformin therapy by her primary physician and presents here with marked hyperglycemic accelerations and generalized body weakness with progressive bouts of dizziness and lightheadedness and is now being referred for diabetic evaluation and management. PAST MEDICAL HISTORY: History of recent diagnosis of type 2 diabetes and started on metformin 500 mg b.i.d. by her primary physician a day prior to admission, history of hypertension and dyslipidemia, history of right breast carcinoma and underwent a right mastectomy as noted. FAMILY HISTORY: Positive for diabetes and hypertension. SOCIAL HISTORY: The patient has a supportive family. No known substance use. REVIEW OF SYSTEMS: As mentioned above. Admits to generalized body weakness with episodic bouts of dizziness and lightheadedness, worse on the day of admission. Also admits to easy fatigability and tiredness and suboptimal energy level. No chest pains, but admits to episodic shortness of breath, especially on exertion. Her oral intake has been variable with nausea and dyspepsia and vague upper abdominal pains. Also admits to habitual constipation. Moreover, admits to recent onset of marked polyuria, nocturia, and polydipsia, worse in the last 2-3 days prior to admission. PHYSICAL EXAMINATION: GENERAL: An average-built female, in no apparent distress. VITAL SIGNS: Blood pressure of 140/80, pulse of 70 beats per minute and regular, temperature 99, respirations 20, height is 5 feet 4 inches, weight is 168 pounds. HEENT: Head normocephalic. Eyes anicteric with pink conjunctivae. Funduscopy not possible at this time. Ears, nose, and throat, otherwise normal. NECK: Supple. Thyroid gland is normal in size. No carotid bruits or cervical adenopathy. CARDIOPULMONARY: Some adynamic precordium. S1, S2 is rapid and regular. LUNGS: Show scattered rhonchi. ABDOMEN: Abdomen is flat, soft with positive bowel sounds. EXTREMITIES: No peripheral edema. Pulses are +2 bilaterally. LABORATORY DATA: Her chemistry showed a BUN of 49, sodium 130, potassium 5.1, chloride 95, CO2 of 21, glucose 1057, and creatinine 1.5. ASSESSMENT: This is a 78-year-old female with uncontrolled and decompensated type 2 insulin-requiring diabetes, presenting here with hyperosmolar hyperglycemic state and mild ketosis with dehydration and prerenal azotemia and spurious hyponatremia. PLAN OF MANAGEMENT: We will modify the coverage scale using a low-dose algorithm with regular insulin as given. We will initiate oral hypoglycemic therapy with glipizide given as 10 mg b.i.d. before meals and hold off metformin, especially with underlying dehydration and nephropathy with advanced age as noted. We will add basal insulin with Levemir given as 20 units subcutaneously at bedtime daily to start tomorrow night. We will obtain serial chemistries and supplement accordingly as needed. We will also continue the vigorous IV hydration to replenish the lost fluids and electrolytes as expected from the increased osmotic diuresis thereof. We will obtain a hemoglobin A1c, if not already done, to confirm her prior poor glycemic control, and baseline thyroid function studies will be ordered. We will follow and advise accordingly. Cheli Alcala MD
--- NOTE | 2018-12-16 09:47 | RAD ---
Date of service: 12/15/2018 HISTORY: fever COMPARISON: 11/20/2017. FINDINGS: LUNGS: The lungs are well inflated and clear. PLEURA: No pleural effusions or pneumothorax. CARDIOVASCULAR: The heart is normal in size. No aortic atherosclerotic calcifications present. OSSEOUS STRUCTURES: Within normal limits for the patient's age. VISUALIZED UPPER ABDOMEN: Normal. OTHER FINDINGS: There is chronic elevation of the right hemidiaphragm. IMPRESSION: No active pulmonary disease.
--- NOTE | 2018-12-16 12:46 | PN ---
DATE: 12/16/2018 ENDOCRINOLOGY FOLLOWUP NOTE SUBJECTIVE: Capri Goss is in room 370. This is a 78-year-old female with recent uncontrolled type 2 insulin-requiring diabetes presenting here with hyperosmolar hyperglycemic state and marked hyperglycemic accelerations and is now being followed closely for metabolic management. She has received vigorous IV hydration since admission with improving metabolic pattern as noted thereof. Her latest glucose levels have ranged from 215 this morning before breakfast to over 500 at bedtime last night. LABORATORY DATA: Her chemistries today showed a BUN of 30, sodium 143, potassium 4.3, chloride 112, CO2 of 26, glucose 265 and creatinine 1.0. ASSESSMENT: This is a 78-year-old female with uncontrolled and decompensated type 2 insulin-requiring diabetes of recent evaluation and diagnosis, presenting here with hyperosmolar hyperglycemic state and dehydration with prerenal azotemia and spurious hyponatremia, that is improving remarkably overnight with vigorous intravenous hydration as given. PLAN: Plan of management; we will continue the vigorous IV hydration with normal saline infusion as ordered and concur with the tapering down to 150 mL/hour as ordered. We will also continue the intensive insulin therapy with low-dose regular insulin coverage scale as given and ordered. We will add glipizide given as 10 mg b.i.d. before meals to start today as ordered. We will also add basal insulin with Levemir given as 20 units subcu at bedtime daily to start tonight. We will consider the addition of Januvia if hyperglycemic levels persist otherwise. We will initiate diabetic education to include insulin self administration and home glucose monitoring and consulting with Ms. Sudha Preciado RN, nurse educator. We will also consult our dietitians for nutritional counseling and healthier food choices otherwise. We will obtain serial chemistries and supplement accordingly as needed. We will follow. Cheli Alcala MD
[2018-12-16 12:50] LABS: FOLATE 10.8 ng/mL
[2018-12-16] MEDS ORDERED: Potassium & Sodium Phosphate PO ONE (14:09)
--- NOTE | 2018-12-16 19:52 | CARD ---
APPROVED REPORT Date of service: 12/15/2018 EKG Measurement Heart [id number] <Conclusion> Normal sinus rhythm T wave abnormalities Abnormal ECG
[2018-12-16] MEDS ORDERED: Insulin Detemir 100 units/ml Vial (Levemir) SC SCH (22:00)
[2018-12-17 06:42] LABS: EOS # 0.1 (0.0-0.7); EOS % 1.1 % (1.5-5.0); HEMOGLOBIN 12.9 g/dL (12.0-16.0); LYMPH # 1.5 (1.2-3.4); LYMPH % 20.7 % (22.0-35.0); MEAN CELL VOLUME 98.8 fl (80.0-105.0); MEAN CORPUSCULAR HEMOGLOBIN 31.5 pg (25.0-35.0); MEAN CORPUSCULAR HGB CONC 31.9 g/dl (31.0-37.0); MEAN PLATELET VOLUME 10.7 fl (7.0-11.0); MONO # 0.5 (0.1-0.6); MONO % 7.1 % (1.0-6.0); RBC 4.09 10^6/uL (3.5-6.1); RED CELL DISTRIBUTION WIDTH 12.6 % (11.5-14.5)
[2018-12-17 07:12] LABS: ALB/GLOB RATIO 1.1 (1.1-1.8); ALBUMIN 3.4 g/dL (3.0-4.8); ALT/SGPT 27 U/L (7-56); AST/SGOT 32 U/L (14-36); BLOOD UREA NITROGEN 16 mg/dL (7-21); CALCIUM 8.7 mg/dL (8.4-10.5); GFR NON-AFRICAN AMERICAN > 60
[2018-12-17] MEDS ORDERED: Insulin Lispro (humaLOG) MIX 75/25(10 ml) SC SCH ×2 (07:30→16:30)
[2018-12-17] MEDS: Insulin Lispro (humaLOG) LOW Coverage SC SCH ×4 (08:11→21:23)
--- NOTE | 2018-12-17 12:52 | CP.PCM.PN ---
<Khang Lazcano - Last Filed: 12/17/18 20:32> Subjective - Date & Time of Evaluation Date of Evaluation: 12/17/18 Time of Evaluation: 12:46 - Subjective Subjective: Khang Lazcano DO PGY1 - Internal Medicine Cargo Vessel Stewardess - Hospitalist Progress Note Patient was seen and examined at bedside this morning. No acute events reported overnight; Polyuria/Polydypsia improving at this time Patient has no complaints of neuropathic pains in lower extremities. No further complaints offered on examination. Objective - Vital Signs/Intake and Output Vital Signs (last 24 hours): Temp Pulse Resp BP Pulse Ox 98.4 F 52 L 20 148/73 99 12/17/18 07:59 12/17/18 09:45 12/17/18 07:59 12/17/18 09:45 12/17/18 07:59 Intake and Output: 12/17/18 12/17/18 06:59 18:59 Intake Total 1060 Output Total 750 Balance 310 - Medications Medications: Current Medications Anastrozole (Arimidex 1 Mg Tab) 1 mg PO QAM [facility] Last Admin: 12/17/18 10:24 Dose: 1 mg Aspirin (Ecotrin) 81 mg PO DAILY [facility] Last Admin: 12/17/18 09:46 Dose: 81 mg Atorvastatin Calcium (Lipitor) 20 mg PO QAM [facility] Last Admin: 12/17/18 09:45 Dose: 20 mg Dextrose (Dextrose 50% Inj) 0 ml IV STAT PRN; Protocol PRN Reason: Hypoglycemia Protocol Ezetimibe (Zetia) 10 mg PO DAILY [facility] Last Admin: 12/17/18 09:46 Dose: 10 mg Glipizide (Glucotrol) 10 mg PO 0730,1630 [facility] Last Admin: 12/17/18 08:14 Dose: 10 mg Dextrose (Dextrose 5% In Water 1000 Ml) 1,000 mls @ 0 mls/hr IV .Q0M PRN; Protocol PRN Reason: Hypoglycemia Protocol Sodium Chloride (Sodium Chloride 0.9%) 1,000 mls @ 150 mls/hr IV .Q6H40M [facility] Last Admin: 12/16/18 09:03 Dose: 150 mls/hr Insulin Detemir (Levemir) 20 unit SC HS [facility] Last Admin: 12/16/18 21:27 Dose: 20 units Insulin Human Lispro (Humalog Low) 0 units SC ACHS [facility]; Protocol Last Admin: 12/17/18 12:21 Dose: Not Given Insulin Lispro Protam/Lispro Human (Humalog Mix 75/25) 24 units SC ACB [facility] Last Admin: 12/17/18 08:14 Dose: 24 units Insulin Lispro Protam/Lispro Human (Humalog Mix 75/25) 18 units SC ACD [facility] Lisinopril (Zestril) 5 mg PO DAILY [facility] Last Admin: 12/17/18 09:45 Dose: 5 mg Spironolactone (Aldactone) 25 mg PO DAILY [facility] - Labs Labs: 12/17/18 06:00 12/17/18 06:00 - Constitutional Appears: Well, Non-toxic, No Acute Distress - Head Exam Head Exam: ATRAUMATIC, NORMOCEPHALIC - Eye Exam Eye Exam: EOMI, PERRL - ENT Exam ENT Exam: Mucous Membranes Moist - Respiratory Exam Respiratory Exam: Clear to Ausculation Bilateral, NORMAL BREATHING PATTERN - Cardiovascular Exam Cardiovascular Exam: REGULAR RHYTHM, RRR - GI/Abdominal Exam GI & Abdominal Exam: Soft. absent: Tenderness - Extremities Exam Extremities Exam: Normal Capillary Refill. absent: Pedal Edema - Neurological Exam Neurological Exam: Alert, Awake, CN II-XII Intact, Oriented x3 - Psychiatric Exam Psychiatric exam: Normal Affect, Normal Mood - Skin Skin Exam: Dry, Intact, Warm Assessment and Plan - Assessment and Plan (Free Text) Plan: 78F w/ recently dx DM2 (2-3 weeks ago), HTN, Breast CA s/p R partial mastectomy on arimidex, presented to [facility] ED 12/13 w/ polyuria/polydypsia and elevated blood sugar; admitted for management of HHS Plan: HHS: Polyuria/Polydypsia improving Fasting Glucose improving - 242 A1C 10.6 Increase Levemir 24 HS Increase Lispro Mix 75/25 - 30 units ACB; 20 units ACD ISS Low - ACHS Glipizide 10 C/w ASA 81 QD Diabetic education completed; Patient observed self administering insulin without difficulty Endocrinology Dr. Alcala Following, Appreciate reccs CYNDI Resolved Most likely prerenal 2/2 dehydration Nephrologgy Consulted - avoid nephrotoxic agents Given no proteinuria acei not reccomended as per nephro Hx HTN Resume home Norvasc 5 Daily Resume Home Aldactone 25 Daily Dyslipidemia Lipitor 20 QAM Zetia 10 Daily Hx Breast CA Anastrozole 1mg QAM Dispo: Patient will be DC home w/ follow up to PMD once medically optimized. Patient was seen, examined, and discussed w/ attending physician Dr. Norma Lazcano DO PGY1 - Internal Medicine C[employer] Vessel Stewardess - Hospitalist Progress Note <Norma Lazcano R - Last Filed: 12/18/18 06:51> Objective - Vital Signs/Intake and Output Vital Signs (last 24 hours): Temp Pulse Resp BP Pulse Ox 98.6 F 64 18 159/60 H 98 12/17/18 17:14 12/17/18 17:14 12/17/18 17:14 12/17/18 17:14 12/17/18 17:14 Intake and Output: 12/17/18 12/18/18 18:59 06:59 Intake Total 3120 Output Total 750 Balance 2370 - Medications Medications: Current Medications Amlodipine Besylate (Norvasc) 5 mg PO DAILY [facility] Anastrozole (Arimidex 1 Mg Tab) 1 mg PO QAM [facility] Last Admin: 12/17/18 10:24 Dose: 1 mg Aspirin (Ecotrin) 81 mg PO DAILY [facility] Last Admin: 12/17/18 09:46 Dose: 81 mg Atorvastatin Calcium (Lipitor) 20 mg PO QAM [facility] Last Admin: 12/17/18 09:45 Dose: 20 mg Dextrose (Dextrose 50% Inj) 0 ml IV STAT PRN; Protocol PRN Reason: Hypoglycemia Protocol Ezetimibe (Zetia) 10 mg PO DAILY [facility] Last Admin: 12/17/18 09:46 Dose: 10 mg Glipizide (Glucotrol) 10 mg PO 0730,1630 [facility] Last Admin: 12/17/18 17:17 Dose: 10 mg Dextrose (Dextrose 5% In Water 1000 Ml) 1,000 mls @ 0 mls/hr IV .Q0M PRN; Protocol PRN Reason: Hypoglycemia Protocol Sodium Chloride (Sodium Chloride 0.9%) 1,000 mls @ 150 mls/hr IV .Q6H40M [facility] Last Admin: 12/17/18 20:00 Dose: 150 mls/hr Insulin Detemir (Levemir) 24 unit SC HS [facility] Last Admin: 12/17/18 21:27 Dose: 24 units Insulin Human Lispro (Humalog Low) 0 units SC ACHS [facility]; Protocol Last Admin: 12/17/18 21:23 Dose: Not Given Insulin Lispro Protam/Lispro Human (Humalog Mix 75/25) 20 units SC ACD [facility] Last Admin: 12/17/18 17:17 Dose: 20 units Insulin Lispro Protam/Lispro Human (Humalog Mix 75/25) 30 units SC ACB [facility] Spironolactone (Aldactone) 25 mg PO DAILY [facility] - Labs Labs: 12/17/18 06:00 12/17/18 06:00 Attending/Attestation - Attestation I have personally seen and examined this patient.: Yes I have fully participated in the care of the patient.: Yes I have reviewed all pertinent clinical information, including history, physical exam and plan: Yes Notes (Text): Patient seen and examined by me with resident at approximately 10:20 AM on 12/17/18. Case including HPI, physical exam, and assessment and plan discussed with resident. Agree with above with following additions/corrections. Patient is a 78-year-old female with past history significant for newly diagnosed type 2 diabetes, hypertension, breast cancer status post right partial mastectomy, and hyperlipidemia that presented to the emergency room for elevated blood sugar reading. Patient states she is feeling ok. States that she is feeling tired. Patient is very hesitant about using insulin at home. States she has never used it in the past. Patient denies nausea, vomiting, or abdominal pain. No diarrhea or constipation. No headaches or dizziness. No fevers or chills. No dysuria. Patient states she is tolerating her diet. Physical exam: General: Awake and alert sitting up in bed in no acute distress. HEENT: Normocephalic, atraumatic. Extraocular muscles intact, pupils equal and reactive, no scleral icterus. Oropharynx is pink and moist. No pharyngeal erythema or exudate appreciated. Neck is supple. Cardiovascular: Regular rhythm. Normal S1 and S2. No murmurs, rubs, or gallops appreciated Pulmonary: Normal respiratory effort. No rhonchi, rales, or wheezing appreciated. Gastrointestinal: Soft, nondistended. Nontender. Positive bowel sounds all 4 quadrants. No guarding. Musculoskeletal: Moves all extremities. No calf tenderness. No edema. Central nervous system: AAOx3. CN 2-12 grossly intact Dermatologic: Skin warm and dry. Assessment and plan: Patient is a 78-year-old female with past history significant for newly diagnosed type 2 diabetes, hypertension, breast cancer status post right partial mastectomy, and hyperlipidemia that presented to the emergency room for elevated blood sugar reading. 1. Hyperosmolar hyperglycemic state. Resolved. DM2. Hemoglobin A1c 10.6. Instructor Programmable Controllers following, recommendations appreciated. Continue insulin sliding scale. Continue glipizide. Continue Levemir at bedtime. Continue Humalog ACD. Continue to monitor Accu-Cheks. Diabetic education. 2. Acute kidney injury. Improved with IV fluids. Continue to monitor. 3. Essential hypertension. Continue Aldactone. Restarted on home Norvasc 4. Hypercholesterolemia. Continue Lipitor and Zetia. 5. Hyperkalemia. Resolved. Continue to monitor. 6. History of breast cancer. No acute issues. Continue home Arimidex. Case discussed in detail with the patient regarding current diagnosis and treatment plan. All questions answered.
--- NOTE | 2018-12-17 13:43 | CP.PCM.CON ---
<Pillo Cordero - Last Filed: 12/17/18 13:43> History of Present Illness - History of Present Illness History of Present Illness: Nephrology Consultation (Dr. Sullivan's Service) CC: CYNDI/HTN/Uncontrolled DM2 HPI: Mrs. Goss is a 78 year old AA female with a past medical history significant for newly diagnosed DM2, HTN, HLD, Invasive Ductal Carcinoma (ER+/AK+/HER2- s/p CT, right partial mastectomy on Arimidex) and CKD II who presented with hyperglycemia. Patient was experiencing polydipsia, polyuria and dizziness earlier this week and went to her PMD with these complaints. She was found to have DM2 and was started on Metformin two days NURSE OUTREACH CASE MANAGER. After her symptoms were not resolved with the metformin, she decided to come to the ED for further evaluation. She was found to have a blood glucose of over 1000 in the ED and was admitted for further evaluation and management of uncontrolled DM2 with hyperglycemia. Nephrology was consulted for CYNDI, refractory HTN and questionable history of hyperaldosteronism diagnosed as an outpatient. Currently patient is resting comfortably and complains only of intermittent dizziness. Further 12 point ROS reviewed and unremarkable at this time. PMH: As stated above PSH: Partial Right Mastectomy, Hysterectomy Family History: DM2, HTN Social History: Previous smoker (quit 30 years ago), social alcohol use and denies any illicit drug use Allergies: NKDA Home Medications: As per MAR with the exception being that the patient was also on Norvasc 5mg as per [facility] records PMD: Dr. Caceres Scraper Burrer: Dr. Arteaga Review of Systems - Review of Systems Review of Systems: As stated above, otherwise negative Past Patient History - Infectious Disease Hx of Infectious Diseases: None - Past Medical History & Family History Past Medical History?: Yes - Past Social History Smoking Status: Former Smoker - CARDIAC Hx Hypercholesterolemia: Yes Hx Hypertension: Yes - PULMONARY Hx Respiratory Disorders: No - NEUROLOGICAL Hx Paralysis: No - HEENT Hx Cataracts: Yes - RENAL Hx Chronic Kidney Disease: No - ENDOCRINE/METABOLIC Hx Diabetes Mellitus Type 2: Yes - HEMATOLOGICAL/ONCOLOGICAL Hx Blood Transfusions: Yes (25 YRS AGO) Hx Blood Transfusion Reaction: No Hx Cancer: Yes (breast) Other/Comment: Breast CA - INTEGUMENTARY Hx Dermatological Problems: No - MUSCULOSKELETAL/RHEUMATOLOGICAL Hx Musculoskeletal Disorders: Yes (JOINT PAINS SOMETIMES) - GASTROINTESTINAL Hx Gastrointestinal Disorders: No - GENITOURINARY/GYNECOLOGICAL Hx Reproductive Disorders: Yes (HAD HYSTERECTOMY HEAVY MENSES) - PSYCHIATRIC Hx Emotional Abuse: No Hx Physical Abuse: No Hx Substance Use: No - SURGICAL HISTORY Hx Hysterectomy: Yes Other/Comment: RIGHT BREAST MASTECTOMY/PARTIAL WITH SENTINEL NODE - ANESTHESIA Hx Anesthesia Reactions: No Hx Malignant Hyperthermia: No Meds Allergies/Adverse Reactions: Allergies Allergy/AdvReac Type Severity Reaction Status Date / Time No Known Allergies Allergy Verified 12/15/18 20:15 - Medications Medications: Current Medications Anastrozole (Arimidex 1 Mg Tab) 1 mg PO QAM [facility] Last Admin: 12/17/18 10:24 Dose: 1 mg Aspirin (Ecotrin) 81 mg PO DAILY [facility] Last Admin: 12/17/18 09:46 Dose: 81 mg [facility]orvastatin [facility] ([facility]itor) [address] Admin: 12/17/18 09:45 Dose: 20 mg Dextrose (Dextrose 50% Inj) 0 ml IV STAT PRN; Protocol PRN Reason: Hypoglycemia Protocol Ezetimibe (Zetia) 10 mg PO DAILY [facility] Last Admin: 12/17/18 09:46 Dose: 10 mg Glipizide (Glucotrol) 10 mg PO 0730,1630 [facility] Last Admin: 12/17/18 08:14 Dose: 10 mg Dextrose (Dextrose 5% In Water 1000 Ml) 1,000 mls @ 0 mls/hr IV .Q0M PRN; Protocol PRN Reason: Hypoglycemia Protocol Sodium Chloride (Sodium Chloride 0.9%) 1,000 mls @ 150 mls/hr IV .Q6H40M [facility] Last Admin: 12/16/18 09:03 Dose: 150 mls/hr Insulin Detemir (Levemir) 20 unit SC HS [facility] Last Admin: 12/16/18 21:27 Dose: 20 units Insulin Human Lispro (Humalog Low) 0 units SC ACHS [facility]; Protocol Last Admin: 12/17/18 12:21 Dose: Not Given Insulin Lispro Protam/Lispro Human (Humalog Mix 75/25) 24 units SC ACB [facility] Last Admin: 12/17/18 08:14 Dose: 24 units Insulin Lispro Protam/Lispro Human (Humalog Mix 75/25) 18 units SC ACD [facility] Lisinopril (Zestril) 5 mg PO DAILY [facility] Last Admin: 12/17/18 09:45 Dose: 5 mg Spironolactone (Aldactone) 25 mg PO DAILY [facility] Physical Exam - Constitutional Appears: Non-toxic, No Acute Distress - Head Exam Head Exam: ATRAUMATIC, NORMOCEPHALIC - Eye Exam Eye Exam: EOMI, Normal appearance, PERRL - ENT Exam ENT Exam: Mucous Membranes Moist - Neck Exam Neck exam: Positive for: Full Rom - Respiratory Exam Respiratory Exam: Clear to Auscultation Bilateral, NORMAL BREATHING PATTERN - Cardiovascular Exam Cardiovascular Exam: REGULAR RHYTHM - GI/Abdominal Exam GI & Abdominal Exam: Normal Bowel Sounds, Soft. absent: Tenderness - Extremities Exam Extremities exam: Negative for: calf tenderness, pedal edema - Neurological Exam Neurological exam: Alert, Oriented x3 - Psychiatric Exam Psychiatric exam: Normal Affect, Normal Mood - Skin Skin Exam: Dry, Intact, Normal Color, Warm Results - Vital Signs Recent Vital Signs: Last Vital Signs Temp 98.4 F 12/17/18 07:59 Pulse 52 L 12/17/18 09:45 Resp 20 12/17/18 07:59 BP 148/73 12/17/18 09:45 Pulse Ox 99 12/17/18 07:59 - Labs Result Diagrams: 12/17/18 06:00 12/17/18 06:00 Labs: Laboratory Results - last 24 hr 12/16/18 12/16/18 12/16/18 05:00 16:20 21:13 WBC RBC Hgb Hct MCV MCH MCHC RDW Plt Count MPV Neut % (Auto) Lymph % (Auto) Addison % (Auto) Eos % (Auto) Baso % (Auto) Lymph # (Auto) Addison # (Auto) Eos # (Auto) Baso # (Auto) Absolute Neuts (auto) Sodium Potassium Chloride Carbon Dioxide Anion Gap BUN Creatinine Est GFR ( Amer) Est GFR (Non-Af Amer) POC Glucose (mg/dL) 330 H 312 H Random Glucose Hemoglobin A1c 10.6 H D Calcium Total Bilirubin AST ALT Alkaline Phosphatase Total Protein Albumin Globulin Albumin/Globulin Ratio 12/17/18 12/17/18 12/17/18 01:34 06:00 06:00 WBC 7.0 RBC 4.09 Hgb 12.9 Hct 40.4 MCV 98.8 MCH 31.5 MCHC 31.9 RDW 12.6 Plt Count 163 MPV 10.7 Neut % (Auto) 71.1 H Lymph % (Auto) 20.7 L Addison % (Auto) 7.1 H Eos % (Auto) 1.1 L Baso % (Auto) 0.0 Lymph # (Auto) 1.5 Addison # (Auto) 0.5 Eos # (Auto) 0.1 Baso # (Auto) 0.00 Absolute Neuts (auto) 4.97 Sodium 141 Potassium 3.7 Chloride 109 H Carbon Dioxide 27 Anion Gap 9 L BUN 16 Creatinine 0.8 Est GFR ( Amer) > 60 Est GFR (Non-Af Amer) > 60 POC Glucose (mg/dL) 266 H Random Glucose 242 H Hemoglobin A1c Calcium 8.7 Total Bilirubin 0.5 AST 32 ALT 27 Alkaline Phosphatase 68 Total Protein 6.4 Albumin 3.4 Globulin 3.0 Albumin/Globulin Ratio 1.1 12/17/18 12/17/18 07:14 12:01 WBC RBC Hgb Hct MCV MCH MCHC RDW Plt Count MPV Neut % (Auto) Lymph % (Auto) Addison % (Auto) Eos % (Auto) Baso % (Auto) Lymph # (Auto) Addison # (Auto) Eos # (Auto) Baso # (Auto) Absolute Neuts (auto) Sodium Potassium Chloride Carbon Dioxide Anion Gap BUN Creatinine Est GFR ( Amer) Est GFR (Non-Af Amer) POC Glucose (mg/dL) 198 H 270 H Random Glucose Hemoglobin A1c Calcium Total Bilirubin AST ALT Alkaline Phosphatase Total Protein Albumin Globulin Albumin/Globulin Ratio Assessment & Plan - Assessment and Plan (Free Text) Assessment: 78 year old AA female with a past medical history significant for newly diagnosed DM2, HTN, HLD, Invasive Ductal Carcinoma (ER+/AK+/HER2- s/p CT, right partial mastectomy on Arimidex) and CKD II who presented with hyperglycemia. Nephrology was consulted for CYNDI, refractory HTN and questionable history of hyperaldosteronism diagnosed as an outpatient. Plan: 1. CYNDI on CKD II -Resolved -Likely pre-renal etiology as patient responded to IVF therapy -Avoid nephrotoxic agents and renally dose medications as indicated -Continue strict glycemic control -Further recommendations as per Dr. Sullivan 2. Hypertension -Would recommend continuing patients home Aldactone and Norvasc -KRYSTAL-I not necessary at this time as patient has non-proteinuric kidney disease -Continue to monitor Patient seen and case discussed with attending, Dr. Sullivan. Pillo Codrero PGY2 - Date & Time Date: 12/17/18 Time: 13:43 <Antoni Sullivan - Last Filed: 12/18/18 08:43> Meds - Medications Medications: Current Medications Amlodipine Besylate (Norvasc) 5 mg PO DAILY [facility] Anastrozole (Arimidex 1 Mg Tab) 1 mg PO QAM [facility] Last Admin: 12/17/18 10:24 Dose: 1 mg Aspirin (Ecotrin) 81 mg PO DAILY [facility] Last Admin: 12/17/18 09:46 Dose: 81 mg Atorvastatin Calcium (Lipitor) 20 mg PO QAM [facility] Last Admin: 12/17/18 09:45 Dose: 20 mg Dextrose (Dextrose 50% Inj) 0 ml IV STAT PRN; Protocol PRN Reason: Hypoglycemia Protocol Ezetimibe (Zetia) 10 mg PO DAILY [facility] Last Admin: 12/17/18 09:46 Dose: 10 mg Glipizide (Glucotrol) 10 mg PO 0730,1630 [facility] Last Admin: 12/17/18 17:17 Dose: 10 mg Dextrose (Dextrose 5% In Water 1000 Ml) 1,000 mls @ 0 mls/hr IV .Q0M PRN; Protocol PRN Reason: Hypoglycemia Protocol Insulin Detemir (Levemir) 24 unit SC HS [facility] Last Admin: 12/17/18 21:27 Dose: 24 units Insulin Human Lispro (Humalog Low) 0 units SC ACHS [facility]; Protocol Last Admin: 12/17/18 21:23 Dose: Not Given Insulin Lispro Protam/Lispro Human (Humalog Mix 75/25) 20 units SC ACD [facility] Last Admin: 12/17/18 17:17 Dose: 20 units Insulin Lispro Protam/Lispro Human (Humalog Mix 75/25) 30 units SC ACB [facility] Spironolactone (Aldactone) 25 mg PO DAILY [facility] Results - Vital Signs Recent Vital Signs: Last Vital Signs Temp 98.1 F 12/18/18 08:34 Pulse 71 12/18/18 08:34 Resp 20 12/18/18 08:34 BP 134/78 12/18/18 08:34 Pulse Ox 95 12/18/18 08:34 - Labs Result Diagrams: 12/18/18 06:00 12/18/18 06:00 Labs: Laboratory Results - last 24 hr 12/16/18 12/17/18 12/17/18 05:00 12:01 21:13 WBC RBC Hgb Hct MCV MCH MCHC RDW Plt Count MPV Neut % (Auto) Lymph % (Auto) Addison % (Auto) Eos % (Auto) Baso % (Auto) Lymph # (Auto) Addison # (Auto) Eos # (Auto) Baso # (Auto) Absolute Neuts (auto) Sodium Potassium Chloride Carbon Dioxide Anion Gap BUN Creatinine Est GFR ( Amer) Est GFR (Non-Af Amer) POC Glucose (mg/dL) 270 H 173 H Random Glucose Hemoglobin A1c 10.6 H D Calcium Total Bilirubin AST ALT Alkaline Phosphatase Total Protein Albumin Globulin Albumin/Globulin Ratio 12/18/18 12/18/18 12/18/18 01:32 06:00 06:00 WBC 7.9 RBC 4.13 Hgb 13.2 Hct 40.5 MCV 98.1 MCH 32.0 MCHC 32.6 RDW 12.6 Plt Count 161 MPV 11.1 H Neut % (Auto) 71.2 H Lymph % (Auto) 20.6 L Addison % (Auto) 6.7 H Eos % (Auto) 1.4 L Baso % (Auto) 0.1 Lymph # (Auto) 1.6 Addison # (Auto) 0.5 Eos # (Auto) 0.1 Baso # (Auto) 0.01 Absolute Neuts (auto) 5.62 Sodium 140 Potassium 4.0 Chloride 107 Carbon Dioxide 27 Anion Gap 11 BUN 12 Creatinine 0.8 Est GFR ( Amer) > 60 Est GFR (Non-Af Amer) > 60 POC Glucose (mg/dL) 215 H Random Glucose 112 H Hemoglobin A1c Calcium 8.4 Total Bilirubin 0.4 AST 29 ALT 25 Alkaline Phosphatase 61 Total Protein 6.5 Albumin 3.2 Globulin 3.3 Albumin/Globulin Ratio 1.0 L 12/18/18 07:35 WBC RBC Hgb Hct MCV MCH MCHC RDW Plt Count MPV Neut % (Auto) Lymph % (Auto) Addison % (Auto) Eos % (Auto) Baso % (Auto) Lymph # (Auto) Addison # (Auto) Eos # (Auto) Baso # (Auto) Absolute Neuts (auto) Sodium Potassium Chloride Carbon Dioxide Anion Gap BUN Creatinine Est GFR ( Amer) Est GFR (Non-Af Amer) POC Glucose (mg/dL) 122 H Random Glucose Hemoglobin A1c Calcium Total Bilirubin AST ALT Alkaline Phosphatase Total Protein Albumin Globulin Albumin/Globulin Ratio Attending/Attestation - Attestation I have personally seen and examined this patient.: Yes I have fully participated in the care of the patient.: Yes I have reviewed all pertinent clinical information: Yes Notes (Text): 78 yo F w/ pmh of newly diagnosed DM, HTN, HLD, Invasive Ductal Carcinoma (ER+/AK+/HER2- s/p CT, right partial mastectomy on Arimidex) and mild CKD, admitted with hyperglycemia and CYNDI; CYNDI resolved, consistent with pre-renal etiology in the setting of marked hyperglycemia; Mild underlying CKD with eGFR at times > 60 ml/min, no microalbuminuria; was being followed by outpatient gum mixer for CKD and HTN, didn't think patient had overt hyperaldosteronism; nevertheless, was kept on aldactone for BP control; Patient currently appears euvolemic on exam; off IVF; -Will recommend to resume home doses of anti-htn meds (amlodipine and ald actone); -No need for KRYSTAL inhibitor/ARB unless there is significant albuminuria; -Counseled on need for adequate glycemic control; ok to restart metformin with CYNDI resolved; Thank you for this referral, we will continue to follow patient while admitted.
[2018-12-17] MEDS: Insulin Lispro (humaLOG) MIX 75/25(10 ml) SC SCH (17:17)
[2018-12-17] MEDS: Sodium Chloride 0.9% 1,000 ML IV SCH ×2 (17:20→20:00)
--- NOTE | 2018-12-17 19:33 | PN ---
DATE: 12/17/2018 ENDO FOLLOWUP NOTE LOCATION: In room 370. SUBJECTIVE: This is a 78-year-old female with recent uncontrolled type 2 insulin-requiring diabetes, now being followed closely for metabolic management. LABORATORY DATA: Her glycemic levels are fluctuating as noted overnight and the glucose levels have ranged from 198-270 mg/dL today and it was 266 at 1:00 this morning and 312 at bedtime last night as noted. Her chemistry showed a BUN of 16, sodium 141, potassium 3.7, chloride 109, CO2 of 27, glucose 242, and creatinine 0.8. ASSESSMENT: This is a 78-year-old female with uncontrolled and decompensated type 2 insulin-requiring diabetes with recent marked hyperglycemic accelerations related to a subtherapeutic insulin regimen and is now being followed closely for metabolic management. PLAN OF MANAGEMENT: We will modify once again her basal and premixed insulin regimen to optimize metabolic control. We will increase the Humalog 30 units a.c. breakfast and 20 units a.c. dinner to start today. We will also modify her basal insulin and increase the Levemir to 24 units subcutaneously at bedtime daily to start tonight. We will modify the coverage scale to a very low-dose algorithm to obviate hypoglycemia and detailed orders have been given. We will follow. Cheli Alcala MD
[2018-12-17] MEDS ORDERED: Insulin Detemir 100 units/ml Vial (Levemir) SC SCH (22:00)
[2018-12-18 06:57] LABS: BASO # 0.01 K/mm3 (0.0-2.0); BASO % 0.1 % (0.0-3.0); EOS # 0.1 (0.0-0.7); EOS % 1.4 % (1.5-5.0); HEMOGLOBIN 13.2 g/dL (12.0-16.0); LYMPH # 1.6 (1.2-3.4); LYMPH % 20.6 % (22.0-35.0); MEAN CELL VOLUME 98.1 fl (80.0-105.0); MEAN CORPUSCULAR HGB CONC 32.6 g/dl (31.0-37.0); MEAN PLATELET VOLUME 11.1 fl (7.0-11.0); MONO # 0.5 (0.1-0.6); MONO % 6.7 % (1.0-6.0); RBC 4.13 10^6/uL (3.5-6.1); RED CELL DISTRIBUTION WIDTH 12.6 % (11.5-14.5); WHITE BLOOD COUNT 7.9 10^3/uL (4.5-11.0)
[2018-12-18 07:20] LABS: ALBUMIN 3.2 g/dL (3.0-4.8); ALT/SGPT 25 U/L (7-56); AST/SGOT 29 U/L (14-36); BLOOD UREA NITROGEN 12 mg/dL (7-21); CALCIUM 8.4 mg/dL (8.4-10.5); GFR NON-AFRICAN AMERICAN > 60
[2018-12-18] MEDS ORDERED: Insulin Lispro (humaLOG) MIX 75/25(10 ml) SC SCH (07:30)
[2018-12-18 08:35] VITALS: RESP 20
[2018-12-18] MEDS: Insulin Lispro (humaLOG) LOW Coverage SC SCH ×3 (13:14→16:50)
--- NOTE | 2018-12-18 14:03 | CP.PCM.DIS ---
<Khang Lazcano - Last Filed: 12/18/18 23:06> Provider - Provider Date of Admission: 12/15/18 22:41 Attending physician: MD Dr. Norma Cuevas DO Primary care physician: Oleg Caceres MD Consults: 12/15/18 22:59 Endocrinology Consult Routine Comment: Consulting Provider: Cheli Alcala Consulting Physician: Cheli Alcala Reason for Consult: HHS, newly diagnosed DM2 12/16/18 07:41 Nephrology Consult Routine Comment: Consulting Provider: Antoni Sullivan Consulting Physician: Antoni Sullivan Reason for Consult: cyndi, refractory htn, hyperaldo outpt 12/16/18 08:02 Diabetic Education Referral Routine Comment: Physician Instructions: Reason For Exam: new onset dm, hhs Time Spent in preparation of Discharge (in minutes): 40 Diagnosis - Discharge Diagnosis (1) Uncontrolled type 2 DM with hyperosmolar nonketotic hyperglycemia Status: Acute Priority: High (2) CYNDI (acute kidney injury) Status: Acute Priority: Medium (3) HTN (hypertension) Status: Acute Priority: Low (4) HLD (hyperlipidemia) Status: Chronic Priority: Low (5) Breast CA Status: Chronic Priority: Low Hospital Course - Lab Results Lab Results: Most Recent Lab Values WBC 7.9 10^3/uL (4.5-11.0) 12/18/18 06:00 RBC 4.13 10^6/uL (3.5-6.1) 12/18/18 06:00 Hgb 13.2 g/dL (12.0-16.0) 12/18/18 06:00 Hct 40.5 % (36.0-48.0) 12/18/18 06:00 MCV 98.1 fl (80.0-105.0) 12/18/18 06:00 MCH 32.0 pg (25.0-35.0) 12/18/18 06:00 MCHC 32.6 g/dl (31.0-37.0) 12/18/18 06:00 RDW 12.6 % (11.5-14.5) 12/18/18 06:00 Plt Count 161 10^3/uL (120.0-450.0) 12/18/18 06:00 MPV 11.1 fl (7.0-11.0) H 12/18/18 06:00 Neut % (Auto) 71.2 % (50.0-68.0) H 12/18/18 06:00 Lymph % (Auto) 20.6 % (22.0-35.0) L 12/18/18 06:00 Toombs % (Auto) 6.7 % (1.0-6.0) H 12/18/18 06:00 Eos % (Auto) 1.4 % (1.5-5.0) L 12/18/18 06:00 Baso % (Auto) 0.1 % (0.0-3.0) 12/18/18 06:00 Lymph # (Auto) 1.6 (1.2-3.4) 12/18/18 06:00 Toombs # (Auto) 0.5 (0.1-0.6) 12/18/18 06:00 Eos # (Auto) 0.1 (0.0-0.7) 12/18/18 06:00 Baso # (Auto) 0.01 K/mm3 (0.0-2.0) 12/18/18 06:00 Absolute Neuts (auto) 5.62 (1.4-6.5) 12/18/18 06:00 pO2 27 mm/Hg (30-55) L 12/15/18 21:08 VBG pH 7.34 (7.32-7.43) 12/15/18 21:08 VBG pCO2 46.0 (40-60) 12/15/18 21:08 VBG HCO3 24.8 mmol/l (21-28) 12/15/18 21:08 VBG O2 Sat (Calc) 48.9 % (40-65) 12/15/18 21:08 VBG Base Excess -1.3 mmol/L (0.0-2.0) L 12/15/18 21:08 Sodium 140 mmol/L (132-148) 12/18/18 06:00 Potassium 4.0 mmol/L (3.6-5.0) 12/18/18 06:00 Chloride 107 mmol/L (98-107) 12/18/18 06:00 Carbon Dioxide 27 mmol/L (21-33) 12/18/18 06:00 Anion Gap 11 (10-20) 12/18/18 06:00 BUN 12 mg/dL (7-21) 12/18/18 06:00 Creatinine 0.8 mg/dl (0.7-1.2) 12/18/18 06:00 Est GFR ( Amer) > 60 12/18/18 06:00 Est GFR (Non-Af Amer) > 60 12/18/18 06:00 POC Glucose (mg/dL) 197 mg/dL (65-110) H 12/18/18 11:18 Random Glucose 112 mg/dL (70-110) H 12/18/18 06:00 Hemoglobin A1c 10.6 % (4.2-6.5) H D 12/16/18 05:00 Calcium 8.4 mg/dL (8.4-10.5) 12/18/18 06:00 Phosphorus 1.8 mg/dL (2.5-4.5) L 12/16/18 05:00 Magnesium 2.1 mg/dL (1.7-2.2) 12/16/18 05:00 Total Bilirubin 0.4 mg/dL (0.2-1.3) 12/18/18 06:00 AST 29 U/L (14-36) 12/18/18 06:00 ALT 25 U/L (7-56) 12/18/18 06:00 Alkaline Phosphatase 61 U/L (38-126) 12/18/18 06:00 Lactate Dehydrogenase 267 U/L (333-699) L 12/15/18 20:55 Total Creatine Kinase 462 U/L (35-230) H 12/15/18 20:55 CK-MB (CK-2) 3.1 ng/mL (0.0-3.6) 12/15/18 20:55 CK-MB (CK-2) % Cancelled 12/15/18 20:55 Troponin I 0.01 ng/mL 12/15/18 20:55 Total Protein 6.5 g/dL (5.8-8.3) 12/18/18 06:00 Albumin 3.2 g/dL (3.0-4.8) 12/18/18 06:00 Globulin 3.3 gm/dL 12/18/18 06:00 Albumin/Globulin Ratio 1.0 (1.1-1.8) L 12/18/18 06:00 Triglycerides 92 mg/dL (35-160) 12/16/18 05:00 Cholesterol 135 mg/dL (130-200) 12/16/18 05:00 LDL Cholesterol Direct 69 mg/dL (0-129) 12/16/18 05:00 HDL Cholesterol 41 mg/dL (29-60) 12/16/18 05:00 Vitamin B12 709 pg/mL (239-931) 12/15/18 22:55 Folate 10.8 ng/mL 12/15/18 22:55 TSH 3rd Generation 3.60 mIU/mL (0.46-4.68) 12/16/18 05:00 Urine Color Straw (YELLOW) 12/15/18 22:40 Urine Appearance Clear (CLEAR) 12/15/18 22:40 Urine pH 6.0 (4.7-8.0) 12/15/18 22:40 Ur Specific [place] 1.010 (1.005-1.035) 12/15/18 22:40 Urine Protein Negative mg/dL (<30 mg/dL) 12/15/18 22:40 Urine Glucose (UA) >=1000 mg/dL (NEGATIVE) 12/15/18 22:40 Urine Ketones Trace mg/dL (NEGATIVE) H 12/15/18 22:40 Urine Blood Trace-lysed (NEGATIVE) H 12/15/18 22:40 Urine Nitrate Negative (NEGATIVE) 12/15/18 22:40 Urine Bilirubin Negative (NEGATIVE) 12/15/18 22:40 Urine Urobilinogen 0.2 E.U./dL (<1 E.U./dL) 12/15/18 22:40 Ur Leukocyte Esterase Negative Junito/uL (NEGATIVE) 12/15/18 22:40 Urine RBC 1 - 3 /hpf (0-2) H 12/15/18 22:40 Urine WBC 0 - 2 /hpf (0-6) 12/15/18 22:40 Ur Epithelial Cells 1 - 3 /hpf (0-5) 12/15/18 22:40 - Hospital Course Hospital Course: Khang Lazcano DO PGY1 - Internal Medicine Medicare Sales Representative - Hospitalist Discharge Summary Patient is a 78F w/ a PMH of newly diagnosed DM2 (2-3 weeks prior to admission), Hyper aldosteronism, Breast CA s/p R partial mastectomy, HTN, HLD, presented to [facility] ED on 12/13 w/ complaints of polyuria, polydypsia, mild dizziness, and elevated blood glucose levels. Patient was subsequently admitted for management of Hyperosmolar Hyperglycemic Syndrome. Patient noted to have blood glucose level in 1000's upon presentation in ED. HHS was initially managed with 15U insulin SC, 10U insulin IVP, High algorithm Insulin Sliding Scale, and IV Fluids. Endocrinology, Dr. Alcala, consulted Glucose levels dropped and ISS was transitioned to Levemir 24 HS, and Lispro Mix 75/25 - 30u ACB, 20u ACD. Hemoglobin A1C noted to be 10.6. Patient was also noted to have a mild CYNDI thought to be most likely due to dehydration - Nephrology Consulted, and CYNDI resolved w/ IVF. Prior to discharge patient received diabetic education - demonstrated comfort w/ self administering insulin and checking fingerstick glucose levels. Patient verbalized understanding and necessity of strict carb control, and maintaining glucose log. Morning of discharge, no acute events were reported overnight, Patient voiced no complaints at bedside. Denied any fevers, chills, abd pain, n/v/d/c. Did report polyuria however stated significant improvement relative to admission. Patient was given the discharge instructions below and verbalized understanding: Prior to Discharge, Patient was seen, examined, and discussed w/ attending physician Dr. Norma Lazcano Patient is medically optimized for discharge at this time. - Date & Time of H&P Date of H&P: 12/18/18 Time of H&P: 10:00 Discharge Exam - Head Exam Head Exam: ATRAUMATIC, NORMOCEPHALIC - Eye Exam Eye Exam: EOMI, Normal appearance, PERRL - Respiratory Exam Respiratory Exam: Clear to PA & Lateral, NORMAL BREATHING PATTERN, UNREMARKABLE - Cardiovascular Exam Cardiovascular Exam: REGULAR RHYTHM, RRR. absent: Systolic Murmur - GI/Abdominal Exam GI & Abdominal Exam: Normal Bowel Sounds, Soft. absent: Tenderness - Extremities Exam Extremities exam: normal capillary refill, pedal pulses present - Neurological Exam Neurological exam: Alert, CN II-XII Intact, Oriented x3 - Psychiatric Exam Psychiatric exam: Normal Affect, Normal Mood - Skin Skin Exam: Dry, Intact, Normal Color, Warm Discharge Plan - Discharge Medications Prescriptions: amLODIPine [Norvasc] 5 mg PO DAILY #15 tab Blood Sugar Diagnostic [Test Strips] 1 each TID #90 strip GlipiZIDE [Glucotrol] 10 mg PO 0730,1630 #30 tab Insulin Aspart/Insulin Aspar [Novolog Mix 70/30 (70/30 units/ml)] 30 units SC ACB 30 Days unit Insulin Aspart/Insulin Aspar [Novolog Mix 70/30 (70/30 units/ml) 10 ml] 20 units SC ACD 30 Days ml Insulin Detemir [Levemir] 24 unit SC HS 30 Days unit Lancets 1 each MC TID #90 each Syringe and Needle,Insulin,1Ml [Insulin Syringe] 1 each MC TID #90 disp.syrin - Follow Up Plan Condition: STABLE Disposition: HOME/ ROUTINE Instructions: Diabetes Diet , Diabetes Type 2 (DC) Additional Instructions: You were admitted for Hyperosmolar Hyperglycemic State a complication of Diabet es Please follow up with your primary care doctor, Dr. Caceres, within 3-5 days of discharge Please follow up with Diabetes Doctor, Dr. Cheli Alcala - Off[facility] Roller, within 3-5 days of discharge Please continue taking the following home medications as previously prescribed Spironolactone 50 Daily Zetia 10 Daily Lipitor 20 Daily Aspirin 81 Daily Arimidex 1mg Every Morning Amlodopine (Norvasc) 5mg daily Please start taking the following medications: Levemir 24 units nightly Novolog 70/30 mix 30units before breakfast Novolog 70/30 mix 20units before dinner Glipizide 10mg daily Please monitor your blood glucose levels before every meal and at bedtime. Please keep a log of your sugars. Please do not take your insulin if your sugars are below 75. Please return to the emergency room if your sugars are below 70 or above 400. If your sugars are below 75, please all drink orange juice or have something with sugar in it. Please eat a low carb/ low sugar diet If your symptoms recur or your experience new/ concerning symptoms please go to the nearest emergency department immediately Referrals: Cheli Alcala MD [Medical Doctor] - Oleg Caceres MD [Primary Care Provider] - <NenoNorma R - Last Filed: 12/19/18 13:41> Provider - Provider Date of Admission: 12/15/18 22:41 Attending physician: Nicolás Norris MD Primary care physician: Oleg Caceres MD Consults: 12/15/18 22:59 Endocrinology Consult Routine Comment: Consulting Provider: Cheli Alcala Consulting Physician: Cheli Alcala Reason for Consult: HHS, newly diagnosed DM2 12/16/18 07:41 Nephrology Consult Routine Comment: Consulting Provider: Antoni Sullivan Consulting Physician: Antoni Sullivan Reason for Consult: cyndi, refractory htn, hyperaldo outpt 12/16/18 08:02 Diabetic Education Referral Routine Comment: Physician Instructions: Reason For Exam: new onset dm, [facility] Hospital Course - Lab Results Lab Results: Most Recent Lab Values WBC 7.9 10^3/uL (4.5-11.0) 12/18/18 06:00 RBC 4.13 10^6/uL (3.5-6.1) 12/18/18 06:00 Hgb 13.2 g/dL (12.0-16.0) 12/18/18 06:00 Hct 40.5 % (36.0-48.0) 12/18/18 06:00 MCV 98.1 fl (80.0-105.0) 12/18/18 06:00 MCH 32.0 pg (25.0-35.0) 12/18/18 06:00 MCHC 32.6 g/dl (31.0-37.0) 12/18/18 06:00 RDW 12.6 % (11.5-14.5) 12/18/18 06:00 Plt Count 161 10^3/uL (120.0-450.0) 12/18/18 06:00 MPV 11.1 fl (7.0-11.0) H 12/18/18 06:00 Neut % (Auto) 71.2 % (50.0-68.0) H 12/18/18 06:00 Lymph % (Auto) 20.6 % (22.0-35.0) L 12/18/18 06:00 Toombs % (Auto) 6.7 % (1.0-6.0) H 12/18/18 06:00 Eos % (Auto) 1.4 % (1.5-5.0) L 12/18/18 06:00 Baso % (Auto) 0.1 % (0.0-3.0) 12/18/18 06:00 Lymph # (Auto) 1.6 (1.2-3.4) 12/18/18 06:00 Toombs # (Auto) 0.5 (0.1-0.6) 12/18/18 06:00 Eos # (Auto) 0.1 (0.0-0.7) 12/18/18 06:00 Baso # (Auto) 0.01 K/mm3 (0.0-2.0) 12/18/18 06:00 Absolute Neuts (auto) 5.62 (1.4-6.5) 12/18/18 06:00 pO2 27 mm/Hg (30-55) L 12/15/18 21:08 VBG pH 7.34 (7.32-7.43) 12/15/18 21:08 VBG pCO2 46.0 (40-60) 12/15/18 21:08 VBG HCO3 24.8 mmol/l (21-28) 12/15/18 21:08 VBG O2 Sat (Calc) 48.9 % (40-65) 12/15/18 21:08 VBG Base Excess -1.3 mmol/L (0.0-2.0) L 12/15/18 21:08 Sodium 140 mmol/L (132-148) 12/18/18 06:00 Potassium 4.0 mmol/L (3.6-5.0) 12/18/18 06:00 Chloride 107 mmol/L (98-107) 12/18/18 06:00 Carbon Dioxide 27 mmol/L (21-33) 12/18/18 06:00 Anion Gap 11 (10-20) 12/18/18 06:00 BUN 12 mg/dL (7-21) 12/18/18 06:00 Creatinine 0.8 mg/dl (0.7-1.2) 12/18/18 06:00 Est GFR ( Amer) > 60 12/18/18 06:00 Est GFR (Non-Af Amer) > 60 12/18/18 06:00 POC Glucose (mg/dL) 197 mg/dL (65-110) H 12/18/18 11:18 Random Glucose 112 mg/dL (70-110) H 12/18/18 06:00 Hemoglobin A1c 10.6 % (4.2-6.5) H D 12/16/18 05:00 Calcium 8.4 mg/dL (8.4-10.5) 12/18/18 06:00 Phosphorus 1.8 mg/dL (2.5-4.5) L 12/16/18 05:00 Magnesium 2.1 mg/dL (1.7-2.2) 12/16/18 05:00 Total Bilirubin 0.4 mg/dL (0.2-1.3) 12/18/18 06:00 AST 29 U/L (14-36) 12/18/18 06:00 ALT 25 U/L (7-56) 12/18/18 06:00 Alkaline Phosphatase 61 U/L (38-126) 12/18/18 06:00 Lactate Dehydrogenase 267 U/L (333-699) L 12/15/18 20:55 Total Creatine Kinase 462 U/L (35-230) H 12/15/18 20:55 CK-MB (CK-2) 3.1 ng/mL (0.0-3.6) 12/15/18 20:55 CK-MB (CK-2) % Cancelled 12/15/18 20:55 Troponin I 0.01 ng/mL 12/15/18 20:55 Total Protein 6.5 g/dL (5.8-8.3) 12/18/18 06:00 Albumin 3.2 g/dL (3.0-4.8) 12/18/18 06:00 Globulin 3.3 gm/dL 12/18/18 06:00 Albumin/Globulin Ratio 1.0 (1.1-1.8) L 12/18/18 06:00 Triglycerides 92 mg/dL (35-160) 12/16/18 05:00 Cholesterol 135 mg/dL (130-200) 12/16/18 05:00 LDL Cholesterol Direct 69 mg/dL (0-129) 12/16/18 05:00 HDL Cholesterol 41 mg/dL (29-60) 12/16/18 05:00 Vitamin B12 709 pg/mL (239-931) 12/15/18 22:55 Folate 10.8 ng/mL 12/15/18 22:55 TSH 3rd Generation 3.60 mIU/mL (0.46-4.68) 12/16/18 05:00 Urine Color Straw (YELLOW) 12/15/18 22:40 Urine Appearance Clear (CLEAR) 12/15/18 22:40 Urine pH 6.0 (4.7-8.0) 12/15/18 22:40 Ur Specific [place] 1.010 (1.005-1.035) 12/15/18 22:40 Urine Protein Negative mg/dL (<30 mg/dL) 12/15/18 22:40 Urine Glucose (UA) >=1000 mg/dL (NEGATIVE) 12/15/18 22:40 Urine Ketones Trace mg/dL (NEGATIVE) H 12/15/18 22:40 Urine Blood Trace-lysed (NEGATIVE) H 12/15/18 22:40 Urine Nitrate Negative (NEGATIVE) 12/15/18 22:40 Urine Bilirubin Negative (NEGATIVE) 12/15/18 22:40 Urine Urobilinogen 0.2 E.U./dL (<1 E.U./dL) 12/15/18 22:40 Ur Leukocyte Esterase Negative Junito/uL (NEGATIVE) 12/15/18 22:40 Urine RBC 1 - 3 /hpf (0-2) H 12/15/18 22:40 Urine WBC 0 - 2 /hpf (0-6) 12/15/18 22:40 Ur Epithelial Cells 1 - 3 /hpf (0-5) 12/15/18 22:40 Attending/Attestation - Attestation I have personally seen and examined this patient.: Yes I have fully participated in the care of the patient.: Yes I have reviewed all pertinent clinical information, including history, physical exam and plan: Yes Notes (Text): Please note this DC summary is for 12/18/18 Patient seen and examined by me with resident at approximately 10:50AM and prior to discharge on 12/18/18. Case including discharge plan discussed with resident. Agree with above with following additions/corrections. Patient is a 78-year-old female with past history significant for newly diagnosed type 2 diabetes, hypertension, breast cancer status post right partial mastectomy, and hyperlipidemia that presented to the emergency room for elevated blood sugar reading. Please see H&P for full details. Patient was found to have hyperosmolar hyperglycemic state, acute kidney injury, hypertension, hypercholesterolemia, hyperkalemia, and history of breast cancer. Hyperosmolar hyperglycemic state resolved. Patient was seen by on call. Hemoglobin A1c was found to be 10.6. Patient was placed on insulin sliding scale. She was also placed on glipizide. She was placed on insulin before dinner and before breakfast. She was also treated with Levemir at bedtime. Accu-Cheks were monitored. Patient was provided with diabetic education multiple times. She was also educated by development educator. Patient also had acute kidney injury. This resolved with IV fluids. Patient was continued on home Aldactone and Norvasc for essential hypertension. Patient was continued on Lipitor and Zetia for hypercholesterolemia. Patient was found have potassium 5.1 on admission which resolved to 4 on discharge. Blood sugars improved. Patient was feeling much better. Patient was cleared for discharge by on call Dr. Alcala on insulin dosing that was discussed with Dr. Alcala. Patient felt comfortable with insulin and checking blood sugars. She was discharged home. On day of discharge, patient stated she was doing much better. Patient stated she was now comfortable in using her insulin and checking her blood sugars. Patient was educated by development educator as well. Patient denied any chest pain or palpitations. No shortness of breath. No fevers or chills. No dysuria. No nausea, vomiting, or abdominal pain. No headaches or dizziness. No dysuria. No diarrhea or constipation. Physical exam: General: Awake and alert sitting up in bed in no acute distress. HEENT: Normocephalic, atraumatic. Extraocular muscles intact, pupils equal and reactive, no scleral icterus. Oropharynx is pink and moist. No pharyngeal erythema or exudate appreciated. Neck is supple. Cardiovascular: Regular rhythm. Normal S1 and S2. No murmurs, rubs, or gallops appreciated Pulmonary: Normal respiratory effort. No rhonchi, rales, or wheezing appreciated. Gastrointestinal: Soft, nondistended. Nontender. Positive bowel sounds all 4 quadrants. No guarding. Musculoskeletal: Moves all extremities. No calf tenderness. No edema. Central nervous system: AAOx3. CN 2-12 grossly intact Dermatologic: Skin warm and dry. Please see chart for full details. Follow up instructions: Patient to follow-up with primary care doctor within 3-5 days. Patient follow-up with on call within 3-5 days. Patient to take medications as prescribed. Patient to check blood sugars before meals and at bedtime. Keep a log of her sugars. Patient advised not to take insulin if sugars are below 75. Patient was also advised to return to emergency room if sugars are below 70 or above 400. All instructions explained to the patient in detail. Patient both understands and agrees to all instructions. Written instructions also given. Time spent in discharging the patient including chart review, medication reconciliation, discussion with the patient, medical unit secretary, consultants, and nursing staff was approximately 50 minutes.
[2018-12-18 16:37] VITALS: BP 160/81; PULSE 65; TEMP 98.9; O2SAT 97
[2018-12-18] MEDS: Insulin Lispro (humaLOG) MIX 75/25(10 ml) SC SCH (16:50)
--- NOTE | 2018-12-18 21:05 | PN ---
DATE: 12/18/2018 ENDOCRINOLOGY FOLLOWUP NOTE LOCATION: In room 370. SUBJECTIVE: This is a 78-year-old female with recent uncontrolled type 2 insulin-requiring diabetes presenting here with hyperosmolar hyperglycemic state and dehydration and is now being followed closely for metabolic management. Her glycemic levels are fluctuating, but improved and the glucose levels have ranged from 122-197 mg/dL. It was 173 at bedtime last night and 270 at lunchtime yesterday as noted. LABORATORY DATA: Her chemistry showed a BUN of 12, sodium 140, potassium 4, chloride 107, CO2 of 27, glucose 112, and creatinine 0.8. ASSESSMENT: This is a 78-year-old female with uncontrolled and decompensated type 2 insulin-requiring diabetes presenting here with hyperosmolar hyperglycemic state and dehydration and has since then improved clinically and metabolically as noted thereof. PLAN OF MANAGEMENT: We will modify her current insulin regimen to a more physiologic basal and bolus drug combination with Levemir given as 24 units subcu at bedtime daily as given. We will continue the Levemir given as 24 units subcu at bedtime daily as ordered. We will obtain serial chemistries and supplement accordingly as needed. We will follow. Cheli Alcala MD
== END 2018-12-18 18:50 | disposition home or self-care (01) | DRG 638 ==
LOC: ED 20:09 → ERH 22:41 → 3RSO 23:37 → UNDODISIN 12-18 16:34
PROVIDERS: ADMIT Internal Medicine; ATTEND Internal Medicine
DX: E11.00 Type 2 diabetes mellitus with hyperosmolarity without nonketotic hyperglycemic-hyperosmolar coma (NKHHC) (principal); N17.9 Acute kidney failure, unspecified; E11.65 Type 2 diabetes mellitus with hyperglycemia; I12.9 Hypertensive chronic kidney disease with stage 1 through stage 4 chronic kidney disease, or unspecified chronic kidney disease; N18.2 Chronic kidney disease, stage 2 (mild); E87.5 Hyperkalemia; E86.0 Dehydration; E11.22 Type 2 diabetes mellitus with diabetic chronic kidney disease; E78.00 Pure hypercholesterolemia, unspecified; E78.5 Hyperlipidemia, unspecified; I25.2 Old myocardial infarction; Z85.3 Personal history of malignant neoplasm of breast; Z79.4 Long term (current) use of insulin; Z90.11 Acquired absence of right breast and nipple; Z87.891 Personal history of nicotine dependence; Z79.82 Long term (current) use of aspirin; Z79.899 Other long term (current) drug therapy

== ENCOUNTER 2019-01-22 12:47 | Outpatient (CLI) | payer MEDICARE | END 2019-01-22 12:48 | disposition home or self-care (01) | LOC: HLTHCOUN 12:47 ==

== ENCOUNTER 2019-01-25 10:37 | Outpatient (CLI) | payer MEDICARE | END 2019-01-25 10:38 | disposition home or self-care (01) | LOC: RAD 10:37 ==